=== PATIENT | male | born 1965 ===

== ENCOUNTER 2016-12-16 17:51 | Inpatient (IN) | payer OTHER ==
[2016-12-16 19:55] LABS: HEMATOCRIT 22.7 % (35.0-51.0); MEAN CELL VOLUME 76.9 fL (80.0-94.0); MEAN PLATELET VOLUME 8.1 fL (7.2-11.7); RED CELL DISTRIBUTION WIDTH 25.1 % (11.5-14.5)
[2016-12-16 20:01] LABS: MEAN CORPUSCULAR HEMOGLOBIN 24.1 pg (27.0-31.0); MEAN CORPUSCULAR HGB CONC 31.4 g/dL (33.0-37.0); PLATELET COUNT 244 K/uL (130-400); WHITE BLOOD COUNT 7.8 K/uL (4.8-10.8)
[2016-12-16 20:05] LABS: CHLORIDE 106 mmol/L (98-107); POTASSIUM 3.9 mmol/L (3.6-5.2); SODIUM 137 mmol/L (132-148)
--- NOTE | 2016-12-16 20:06 | C.PDOC ---
History Of Present Illness 51 year old patient presents to the ED complaining of right leg pain for an unspecified amount of time and right upper back pain. pt denies any history of heavy lifting. pt denies cp and sob. pt is a poor historian, reports hx of liver disease. Time Seen by Provider: 12/16/16 18:26 Chief Complaint (Nursing): Back Pain History Per: Patient History/Exam Limitations: no limitations Current Symptoms Are (Timing): Still Present Quality Of Discomfort: "Pain" Severity: Moderate Pain Scale Rating Of: 7 Recent travel outside of the [place]: No Past Medical History Reviewed: Historical Data, Nursing Documentation, Vital Signs Vital Signs: Last Vital Signs Temp 98.9 F 12/16/16 19:23 Pulse 119 H 12/16/16 20:33 Resp 14 12/16/16 20:33 BP 148/90 12/16/16 20:33 Pulse Ox 99 12/16/16 21:20 - Medical History Other PMH: liver disease Surgical History: No Surg Hx Family History: States: Unknown Family Hx - Social History Hx Tobacco Use: Yes Hx Alcohol Use: Yes Hx Substance Use: No - Immunization History Hx Tetanus Toxoid Vaccination: No Hx Influenza Vaccination: No Hx Pneumococcal Vaccination: No Review Of Systems Except As Marked, All Systems Reviewed And Found Negative. Constitutional: Negative for: Fever, Chills Cardiovascular: Negative for: Chest Pain Respiratory: Negative for: Cough, Shortness of Breath Gastrointestinal: Negative for: Nausea, Vomiting, Abdominal Pain Musculoskeletal: Positive for: Back Pain Neurological: Negative for: Weakness, Numbness Physical Exam - Physical Exam Appears: Non-toxic, No Acute Distress, Unkempt Skin: No Normal Color, Warm, Dry, Other (skin bronzed appearance on face. ) Head: Atraumatic, Normacephalic Eye(s): bilateral: PERRL, EOMI, Conjunctiva Pale Oral Mucosa: Moist Neck: Normal ROM, Supple Chest: Symmetrical, No Deformity, No Tenderness Cardiovascular: Rhythm Regular (tachycardic), No Murmur Respiratory: Normal Breath Sounds, No Rales, No Rhonchi, No Wheezing Gastrointestinal/Abdominal: Soft, No Tenderness Rectal: Rectal Tone, No Maroon Stool, Other (brown stool, no gross blood. ) Back: Normal Inspection, No CVA Tenderness, Other (tedner all along entire right side of back paravertebral area) Extremity: Normal ROM, Pedal Edema, Other (left lower ext +2 dp pulse, +2 pitting edema, no calf tenderness. RLE- +2 dp pulse, markedly more swollen than left from foot to knee with chronic skin changes, no erythema or warmth. +3 pitting edema) Neurological/Psych: Oriented x3, Normal Speech, Normal Cognition Gait: Steady ED Course And Treatment - Laboratory Results Result Diagrams: 12/16/16 19:50 12/16/16 19:50 O2 Sat by Pulse Oximetry: 99 (room air) Pulse Ox Interpretation: Normal Disposition Discussed With Dr.: Ashutosh Snyder Doctor Will See Patient In The: ED - Disposition Disposition: HOSPITALIZED Disposition Time: 21:32 Condition: SERIOUS - Clinical Impression Clinical Impression: Anemia, Liver disease Decision To Admit - Pt Status Changed To: Hospital Disposition Of: Inpatient - Admit Certification Admit to Inpatient:: After my assessment, the patient will require hospitalization for at least two midnights. This is because of the severity of symptoms shown, intensity of services needed, and/or the medical risk in this patient being treated as an outpatient. - InPatient: Physician Admission Certification:: for tx of anemia and liver disease - . Bed Request Type: Regular Admitting Physician: Ashutosh Snyder Patient Diagnosis: Anemia, Liver disease
[2016-12-16 20:07] LABS: BILIRUBIN,TOTAL 2.5 mg/dL (0.2-1.3); GFR AFRICAN-AMERICAN > 60
[2016-12-16 20:08] LABS: ALKALINE PHOSPHATASE 259 U/L (38-126); ALT/SGPT 29 U/L (21-72); AST/SGOT 77 U/L (17-59); BLOOD UREA NITROGEN 6 mg/dL (9-20); CALCIUM 7.3 mg/dl (8.6-10.4); CARBON DIOXIDE 23 mmol/L (22-30); GLUCOSE,RANDOM 133 mg/dL (75-110); TOTAL PROTEIN 7.4 g/dL (6.3-8.3)
[2016-12-16 20:11] LABS: ALB/GLOB RATIO 0.5 (1.0-2.1)
[2016-12-16 20:16] LABS: INR 1.9
[2016-12-16 20:32] LABS: EOSINOPHIL 3 % (0-4); NEUTROPHIL 50 % (50-75); REACTIVE LYMPHOCYTES 1 % (0-0); TOTAL CELLS COUNTED 100
[2016-12-16 20:33] LABS: GIANT PLATELETS PRESENT; LARGE PLATELETS PRESENT; SPHEROCYTES SLIGHT
[2016-12-16] MEDS ORDERED: Sodium Chloride 0.9% 1,000 ML IV ONE (20:45)
[2016-12-16 21:05] LABS: ALCOHOL SERUM 47 mg/dl (0-10)
[2016-12-16 22:59] LABS: RBC URINE 7 /hpf (0-3); URINE BILIRUBIN NEGATIVE (NEGATIVE); URINE BLOOD 1+ (NEGATIVE); URINE COLOR Yellow (YELLOW); URINE GLUCOSE (UA) NORMAL (Normal); URINE KETONE NEGATIVE (NEGATIVE); URINE LEUKOCYTE ESTERASE NEG Leu/uL (Negative); URINE PROTEIN NEGATIVE (NEGATIVE); WBC URINE 1 /hpf (0-5)
--- NOTE | 2016-12-16 23:10 | CP.PCM.HP ---
<Idania Candelaria - Last Filed: 12/17/16 02:12> History of Present Illness - History of Present Illness History of Present Illness: CC: "Right shoulder and leg pain" HPI: Patient is a 51 year old male with medical history of liver disease and alcohol abuse who presents to the emergency department for right shoulder pain and right lower extremity swelling and pain. Patient is a poor historian and difficult to understand due to hoarse voice/laryngitis. He states he lost his voice 4 days ago. Patient denies recent intake of alcohol; however, blood alcohol level performed in ED came back elevated (47). When questioned about alcohol use, patient states he quit drinking in three years ago. He reports he used to drink 2 pints of vodka for many years. Patient states he developed right shoulder pain 4 days ago. He denies any trauma to the area. Patient denies chest pain, palpitations, shortness of breath, and abdominal pain/ distention. He admits to multiple episodes of dark red emesis 4 days ago. Patient cannot not quantify amount or further describe vomitus. He states, "I was throwing up all night." He denies diarrhea, hematochezia, and melanic stool. Patient admits to feeling fatigue. He denies dizziness and lightheadedness. Patient also complains of right lower extremity swelling and pain, which has been present for a year. He reports he had surgery for an infection to the affected extremity one year ago. Patient notes he has difficulty with ambulation. He does not use any supportive devices for ambulation. Patient denies history of alcohol withdrawal and seizure activity, hallucinations, and tremors. PMD: none PMH: Liver disease, alcohol abuse Medications: none Allergies: NKDA, seasonal allergies Family History: denies Surgical History: Right lower extremity surgery Social: Denies tobacco and illicit drug use. Reports he has not had alcohol in 3 years. Admits to drinking 2 pints of vodka daily in the past. Admits to being homeless. Present on Admission - Present on Admission Any Indicators Present on Admission: No History of DVT/PE: No History of Uncontrolled Diabetes: No Urinary Catheter: No Decubitus Ulcer Present: No Review of Systems - Constitutional Constitutional: Fatigue. absent: Chills, Fever, Headache, Night Sweats, Weight Loss - EENT Eyes: absent: Blurred Vision, Change in Vision Nose/Mouth/Throat: Change in Voice, Hoarsness. absent: Odynophagia - Cardiovascular Cardiovascular: Leg Edema, Pedal Edema. absent: Chest Pain, Chest Pain at Rest , Chest Pain with Activity, Dyspnea, Pain Radiating to Arm/Neck/Jaw, Lightheadedness, Palpitations, Rapid Heart Rate - Respiratory Respiratory: absent: Cough, Hemoptysis, Wheezing, Chest Congestion, Pain with Coughing - Gastrointestinal Gastrointestinal: Coffee Ground Emesis, Nausea, Vomiting. absent: Abdominal Pain, Constipation, Diarrhea, Hematochezia, Melena - Genitourinary Genitourinary: absent: Change in Urinary Stream, Difficulty Urinating, Hematuria - Musculoskeletal Musculoskeletal: Back Pain Additional comments: right shoulder pain - Integumentary Integumentary: Pruritus, Rash Additional comments: pruritus rash on chest and back - Neurological Neurological: absent: Disequilibrium, Dizziness, Weakness - Psychiatric Psychiatric: absent: Anxiety, Depression Past Patient History - Infectious Disease Hx of Infectious Diseases: None - Past Social History Smoking Status: Never Smoked - PSYCHIATRIC Hx Substance Use: No - SURGICAL HISTORY Hx Surgeries: Yes Other/Comment: right arm and right knee surgery. - ANESTHESIA Hx Anesthesia: Yes Hx Anesthesia Reactions: No Hx Malignant Hyperthermia: No Meds Allergies/Adverse Reactions: Allergies Allergy/AdvReac Type Severity Reaction Status Date / Time No Known Allergies Allergy Unverified 12/16/16 19:29 Physical Exam - Constitutional Appears: No Acute Distress Additional comments: aaron/cyanotic face - Head Exam Additional comments: aaron/cyanotic appearing face - Eye Exam Eye Exam: EOMI, Normal appearance, PERRL. absent: Nystagmus, Scleral icterus - ENT Exam ENT Exam: Mucous Membranes Moist Additional comments: hoarse voice - Neck Exam Neck exam: Positive for: Full Rom, Normal Inspection - Respiratory Exam Respiratory Exam: Clear to Auscultation Bilateral, NORMAL BREATHING PATTERN. absent: Rales, Rhonchi, Wheezes - Cardiovascular Exam Cardiovascular Exam: Tachycardia, +S1, +S2. absent: Diastolic murmur, Systolic Murmur - GI/Abdominal Exam GI & Abdominal Exam: Distended, Hyperactive Bowel Sounds, Organomegaly Additional comments: hepatomegaly - Extremities Exam Extremities exam: Positive for: pedal edema, tenderness Additional comments: RLE: significant edema to right lower extremity and foot with lichenification and verrucous plaques to skin. Malodorous papillomatous lesions noted. Area of ulceration to lateral calf. 3+ pitting edema. Deformity to phalanges. Diminished pedal pulse. LLE: trace edema to left lower extremity. Pedal edema. Deformed phalanges. - Back Exam Back exam: NORMAL INSPECTION - Neurological Exam Neurological exam: Alert, CN II-XII Intact, Oriented x3 - Psychiatric Exam Psychiatric exam: Normal Affect, Normal Mood - Skin Additional comments: aaron/cyanotic appearance to facial skin multiple pruritic red papules and pustules affecting chest and back with areas of excoriation and crusting. Results - Vital Signs Recent Vital Signs: Last Vital Signs Temp 98.9 F 12/16/16 19:23 Pulse 119 H 12/16/16 20:33 Resp 14 12/16/16 20:33 BP 148/90 12/16/16 20:33 Pulse Ox 99 12/16/16 21:37 - Labs Result Diagrams: 12/16/16 19:50 12/16/16 19:50 Labs: Laboratory Results - last 24 hr 12/16/16 12/16/16 21:34 22:09 Stool Occult Blood Negative Urine Opiates Screen Negative Urine Methadone Screen Negative Ur Barbiturates Screen Negative Ur Phencyclidine Scrn Negative Ur Amphetamines Screen Negative U Benzodiazepines Scrn Negative U Oth Cocaine Metabols Negative U Cannabinoids Screen Negative Assessment & Plan - Assessment and Plan (Free Text) Assessment: Right Lower Extremity 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 Degroot, consulted. help appreciated. F/U AM CBC with diff Tachycardia EKG: A-fib with RVR Patient denies prior history of a-fib Given Cardizem 5 mg IVP stat Start Cardizem 30 mg po QID F/u lower extremity duplex scan F/u SHERLEY Panel and Serial EKG Trop I <0.[address] angiogram pending results of lower extremity duplex scan Alcohol Abuse Disorder Alcohol, Quantitative 47 Denying current alcohol abuse AST 77/ALT 29 Alk Phos 259 Hyperbilirubinemia - total bilirubin 2.5 Lipase 2.6 Tachycardic rate of 119 Ativan 2 mg po q4h prn for withdrawal symptoms Zofran 4 mg IVP q6h prn for nausea/vomiting Start folic acid, multivitamins, and thiamine daily Counseled on alcohol cessation seizure and aspiration precautions Transaminitis Likely secondary to alcohol abuse AST 77, ALT 29 f/u Hepatitis Panel f/u Abdominal Ultrasound Monitor Coagulopathy Likely secondary to alcohol abuse PT 21.5, PTT 38, INR 1.9 Chemical VTE contraindicated Monitor Papular Dermatosis Gabe's disease (Transient Acantholytic Dermatosis) vs. HIV dermatosis vs. Folliculitis f/u HIV Antibody Triamcinolone 0.1% topical cream BID for 2 weeks to chest and back for pruritus Pseudo-Hypocalcemia calcium 7.3 albumin 2.6 corrected calcium 11.34 Prophylaxis Protonix 20 mg po daily Chemical VTE contraindicated due to coagulopathy Heart Healthy Diet - Date & Time Date: 12/17/16 Time: 02:15 <Ashutosh Snyder - Last Filed: 12/17/16 06:26> Results - Vital Signs Recent Vital Signs: Last Vital Signs Temp 98.6 F 12/17/16 00:40 Pulse 117 H 12/17/16 00:40 Resp 20 12/17/16 00:40 BP 150/87 12/17/16 00:40 Pulse Ox 96 12/17/16 00:40 - Labs Result Diagrams: 12/16/16 19:50 12/16/16 19:50 Labs: Laboratory Results - last 24 hr 12/16/16 12/16/16 12/16/16 21:34 22:09 22:40 Urine Color Yellow Urine Clarity Clear Urine pH 6.0 Ur Specific [place] 1.016 Urine Protein Negative Urine Glucose (UA) Normal Urine Ketones Negative Urine Blood 1+ H Urine Nitrate Negative Urine Bilirubin Negative Urine Urobilinogen 4.0 Ur Leukocyte Esterase Neg Urine WBC (Auto) 1 Urine RBC (Auto) 7 H Ur Squamous Epith Cells < 1 Stool Occult Blood Negative Urine Opiates Screen Negative Urine Methadone Screen Negative Ur Barbiturates Screen Negative Ur Phencyclidine Scrn Negative Ur Amphetamines Screen Negative U Benzodiazepines Scrn Negative U Oth Cocaine Metabols Negative U Cannabinoids Screen Negative Assessment & Plan - Date & Time Date: 12/17/16 (I have seen and examined the patient. I agree with the findings and plan of care as documented by Dr. Candelaria. Patient with Alcohol abuse. Ativan. Abdominal ultrasound. Anemia. Patient's history suspicious for GI bleed. GI consult. For leg edema and tachycardia, check doppler of lower extremity. May check CT angio if patient complains of SOB. Monitor for acute changes.) Time: 06:23 Attending/Attestation - Attestation I have personally seen and examined this patient.: Yes I have fully participated in the care of the patient.: Yes I have reviewed all pertinent clinical information: Yes
[2016-12-17 06:21] LABS: MEAN CORPUSCULAR HEMOGLOBIN 24.6 pg (27.0-31.0); MEAN PLATELET VOLUME 8.2 fL (7.2-11.7); WHITE BLOOD COUNT 9.3 K/uL (4.8-10.8)
[2016-12-17 06:28] LABS: CHLORIDE 102 mmol/L (98-107); SODIUM 133 mmol/L (132-148)
[2016-12-17 06:29] LABS: POTASSIUM 3.9 mmol/L (3.6-5.2)
[2016-12-17 06:30] LABS: CHOLESTEROL 162 mg/dL (0-199)
[2016-12-17 06:31] LABS: ALB/GLOB RATIO 0.5 (1.0-2.1); ALKALINE PHOSPHATASE 241 U/L (38-126); AST/SGOT 71 U/L (17-59); BILIRUBIN,TOTAL 2.5 mg/dL (0.2-1.3); BLOOD UREA NITROGEN 6 mg/dL (9-20); CARBON DIOXIDE 26 mmol/L (22-30); GFR AFRICAN-AMERICAN > 60; GLUCOSE,RANDOM 117 mg/dL (75-110); TOTAL PROTEIN 7.2 g/dL (6.3-8.3)
[2016-12-17 06:32] LABS: ALT/SGPT 29 U/L (21-72); CALCIUM 6.9 mg/dl (8.6-10.4); IRON 35 ug/dL (49-181)
[2016-12-17 06:33] LABS: HEMATOCRIT 22.9 % (35.0-51.0); MEAN CELL VOLUME 76.8 fL (80.0-94.0); PLATELET COUNT 228 K/uL (130-400); RED CELL DISTRIBUTION WIDTH 24.3 % (11.5-14.5)
[2016-12-17 06:45] LABS: INR 1.9
[2016-12-17 06:48] LABS: T4 2.79 ug/dL (5.5-11.0)
[2016-12-17 07:02] LABS: THYROID STIMULATING HORMONE 2.04 mIU/L (0.46-4.68)
--- NOTE | 2016-12-17 08:13 | CP.PCM.PN ---
<Christiane Vargas I - Last Filed: 12/17/16 08:10> Subjective - Date & Time of Evaluation Date of Evaluation: 12/17/16 Time of Evaluation: 07:50 - Subjective Subjective: PGY3 on the Medicine Service Patient seen and examined at bedside. Sleepy but arousable to verbal stimuli. Complains of chronic back pain and right leg pain. Denies chest pain, SOB, headache, dizziness, tremor, nausea, vomiting, diarrhea. Objective - Vital Signs/Intake and Output Vital Signs (last 24 hours): Temp Pulse Resp BP Pulse Ox 98.3 F 120 H 20 151/93 H 96 12/17/16 07:38 12/17/16 07:38 12/17/16 07:38 12/17/16 07:38 12/17/16 07:38 Intake and Output: 12/17/16 12/17/16 06:59 18:59 Output Total 400 Balance -400 - Medications Medications: Current Medications Diltiazem HCl (Cardizem) 30 mg PO QID [facility] Folic Acid (Folic Acid) 1 mg PO DAILY [facility] Influenza Virus Vaccine (Afluria) 45 mcg IM .ONCE ONE Stop: 12/19/16 14:01 Lorazepam (Ativan) 2 mg PO Q4H PRN PRN Reason: withdrawal Multivitamins (Hexavitamin) 1 tab PO DAILY [facility] Ondansetron HCl (Zofran Inj) 4 mg IVP Q6H PRN PRN Reason: Nausea/Vomiting Pantoprazole Sodium (Protonix Ec Tab) 20 mg PO DAILY [facility] Pneumococcal Polyvalent Vaccine (Pneumovax 23 Vaccine) 0.5 ml IM .ONCE ONE Stop: 12/19/16 14:01 Thiamine HCl (Vitamin B1 Tab) 100 mg PO DAILY [facility] Triamcinolone Acetonide (Kenalog 0.1% Cream) 0 appl TOP BID [facility] - Labs Labs: 12/17/16 06:00 12/17/16 06:00 PT 21.7 SECONDS (9.7-12.2) H 12/17/16 06:00 INR 1.9 12/17/16 06:00 APTT 38 SECONDS (21-34) H 12/17/16 06:00 - Constitutional Appears: Non-toxic, No Acute Distress, Chronically Ill - Head Exam Head Exam: ATRAUMATIC, NORMAL INSPECTION, NORMOCEPHALIC - Eye Exam Eye Exam: Scleral icterus - ENT Exam ENT Exam: Mucous Membranes Moist - Respiratory Exam Respiratory Exam: Clear to Ausculation Bilateral, NORMAL BREATHING PATTERN - Cardiovascular Exam Cardiovascular Exam: Irregular Rhythm. absent: Murmur - GI/Abdominal Exam GI & Abdominal Exam: Distended, Soft, Normal Bowel Sounds. absent: Tenderness - Extremities Exam Additional comments: right leg 1+ edema with some nonhealing appearing ulcers - Back Exam Back Exam: NORMAL INSPECTION. 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 Degroot, consulted. help appreciated. Monitor CBC and tranfuse for Hgb <7 Tachycardia EKG: A-fib with RVR Patient denies prior history of a-fib Cardizem 30 mg po QID F/u lower extremity duplex scan SHERLEY panel negative Consider CT angiogram pending results of lower extremity duplex scan Alcohol Abuse Disorder Alcohol, Quantitative 47 Denies current alcohol abuse AST and ALT have a 3:1 ratio, consistent with EtOH abuse Alk Phos 259 Hyperbilirubinemia - total bilirubin 2.5 Lipase 2.6 Ativan 2 mg po q4h prn for withdrawal symptoms Zofran 4 mg IVP q6h prn for nausea/vomiting Continue folic acid, multivitamins, and thiamine daily Counseled on alcohol cessation seizure and aspiration precautions Transaminitis AST and ALT have a 3:1 ratio, consistent with EtOH abuse Hepatitis Panel pending f/u Abdominal Ultrasound Monitor Coagulopathy Likely secondary to alcohol abuse PT 21.5, PTT 38, INR 1.9 Chemical VTE contraindicated Monitor Papular Dermatosis [place]'s disease (Transient Acantholytic Dermatosis) vs. HIV dermatosis vs. Folliculitis f/u HIV Antibody Triamcinolone 0.1% topical cream BID for 2 weeks to chest and back for pruritus Pseudo-Hypocalcemia calcium 7.3 albumin 2.6 corrected calcium 11.34 Prophylaxis Protonix 20 mg po daily Chemical VTE contraindicated due to coagulopathy Heart Healthy Diet <Anish Jefferson - Last Filed: 12/17/16 12:51> Objective - Vital Signs/Intake and Output Vital Signs (last 24 hours): Temp Pulse Resp BP Pulse Ox 98.3 F 120 H 20 151/93 H 96 12/17/16 07:38 12/17/16 07:38 12/17/16 07:38 12/17/16 07:38 12/17/16 07:38 Intake and Output: 12/17/16 12/17/16 06:59 18:59 Output Total 400 Balance -400 - Medications Medications: Current Medications Diltiazem HCl (Cardizem) 30 mg PO QID [facility] Last Admin: 12/17/16 09:47 Dose: 30 mg Folic Acid (Folic Acid) 1 mg PO DAILY [facility] Last Admin: 12/17/16 09:47 Dose: 1 mg Octreotide Acetate 1,250 mcg/ (Dextrose) 250 mls @ 5 mls/hr IV .Q24H [facility] PRN Reason: 25 MCG/HR Pantoprazole Sodium 80 mg/ (Sodium Chloride) 100 mls @ 10 mls/hr IVP .Q10H [facility] PRN Reason: 8 MG/HR Influenza Virus Vaccine (Afluria) 45 mcg IM .ONCE ONE Stop: 12/19/16 14:01 Lorazepam (Ativan) 2 mg PO Q4H PRN PRN Reason: withdrawal Multivitamins (Hexavitamin) 1 tab PO DAILY [facility] Last Admin: 12/17/16 09:47 Dose: 1 tab Ondansetron HCl (Zofran Inj) 4 mg IVP Q6H PRN PRN Reason: Nausea/Vomiting Pneumococcal Polyvalent Vaccine (Pneumovax 23 Vaccine) 0.5 ml IM .ONCE ONE Stop: 12/19/16 14:01 Thiamine HCl (Vitamin B1 Tab) 100 mg PO DAILY [facility] Last Admin: 12/17/16 09:47 Dose: 100 mg Triamcinolone Acetonide (Kenalog 0.1% Cream) 0 appl TOP BID [facility] Last Admin: 12/17/16 09:50 Dose: 1 appl - Labs Labs: 12/17/16 06:00 12/17/16 06:00 PT 21.7 SECONDS (9.7-12.2) H 12/17/16 06:00 INR 1.9 12/17/16 06:00 APTT 38 SECONDS (21-34) H 12/17/16 06:00 Attending/Attestation - Attestation I have personally seen and examined this patient.: Yes I have fully participated in the care of the patient.: Yes I have reviewed all pertinent clinical information, including history, physical exam and plan: Yes Notes (Text): 12/17/16 12:43 Patient seen and examined at bedside today Patient denies any active nausea or vomiting Complains of for right lower extremity swelling and also right mid back pain. Patient is anemic and GI evaluation seen in appreciated. Patient is scheduled for EGD tomorrow. Patient has atrial fibrillation but is rate controlled at this time. His heart rate is in the 70s and 80s. We will continue Cardizem. Patient will be a candidate for antiplatelet therapy. His CHADS 2 score is 0 We will hold any antiplatelet therapy at this time because patient has an EGD scheduled for morning and we have rule out GI bleed prior to starting him on antiplatelet therapy. Discussed the plan of care with the resident.
--- NOTE | 2016-12-17 09:43 | US ---
HISTORY: distended, alcohol abuse COMPARISON: None available. TECHNIQUE: Sonographic evaluation of the abdomen. FINDINGS: Examination limited by excessive bowel gas. LIVER: Measures 15.6 cm in sagittal dimension. Nodular hepatic contour. No focal hepatic mass identified. The main portal vein appears patent with normal directional flow. Trace perihepatic ascites. No intrahepatic bile duct dilatation. GALLBLADDER: No gallstones. Gallbladder wall appears thickened measuring approximately 5 mm with trace pericholecystic edema. Negative sonographic West's sign as assessed by the service station operator. COMMON BILE DUCT: Measures 5 mm. No stones. No dilatation. PANCREAS: Not well visualized. RIGHT KIDNEY: Measures 1.9 x 2.3 x 2.1cm. No obstructing calculus or hydronephrosis identified. LEFT KIDNEY: Measures 11.9 x 6.5 x 5.6cm. No obstructing calculus or hydronephrosis identified. 1.9 x 2.3 x 2.1 cm cyst. SPLEEN: Measures approximately 8.5 cm No focal splenic mass or calcification evident. AORTA: Limited views appear unremarkable. IVC: Limited views appear unremarkable. OTHER FINDINGS: None. IMPRESSION: Examination limited by bowel gas. Gallbladder wall appears thickened measuring approximately 5 mm with trace pericholecystic edema. No gallstones identified. Negative sonographic West's sign as assessed by the service station operator. 1.9 x 2.3 x 2.1 cm left renal cyst. Trace perihepatic ascites. Nodular hepatic contour. Correlate clinically for possibility of cirrhosis.
[2016-12-17] MEDS: Multiple Vitamins Tab PO SCH (09:47)
[2016-12-17] MEDS ORDERED: Pantoprazole 20 mg EC Tab PO SCH (10:00)
[2016-12-17 10:20] LABS: EOS # 0.4 K/uL (0.0-0.7); LYMPH # 1.8 K/uL (1.0-4.3)
[2016-12-17 10:23] LABS: EOSINOPHIL 4 % (0-4); NEUTROPHIL 55 % (50-75); TOTAL CELLS COUNTED 100
[2016-12-17 10:25] LABS: LARGE PLATELETS PRESENT
--- NOTE | 2016-12-17 12:25 | CP.PCM.CON ---
History of Present Illness - History of Present Illness History of Present Illness: This is a 51 year old man with a history of alcohol abuse who was admitted 2016 for pain in the right shoulder and swelling of the right leg. Patient admits to drinking two pints of vodka daily for many years. He claims not to have consumed alcohol recently, but the alcohol level on admission was 47. He states that he had several bouts of vomiting dark red blood approximately four days prior to admission. He has felt weak. He denies having bright red blood per rectum, melena and diarrhea. He denies having seizures or DTs. Blood work showed anemia, HGB 7.3, coagulopathy, PT 21.7, and elevated liver enzymes, AST 71, ALT 29, ALK 241,000, TBILI 2.5. sonogram showed nodular hepatic contour, trace perihepatic ascites and thickening of the GB wall, without sonographic West's sign. Review of Systems - Review of Systems Systems not reviewed;Unavailable: Uncooperative - Constitutional Constitutional: absent: Chills, Fever - EENT Eyes: absent: Blurred Vision Nose/Mouth/Throat: Hoarsness - Cardiovascular Cardiovascular: Leg Edema. absent: Chest Pain, Dyspnea, Palpitations - Respiratory Respiratory: absent: Cough - Gastrointestinal Gastrointestinal: Hematemesis, Nausea, Vomiting. absent: Abdominal Pain, Constipation, Diarrhea, Hematochezia, Melena - Genitourinary Genitourinary: absent: Difficulty Urinating - Neurological Neurological: absent: Syncope Past Patient History - Infectious Disease Hx of Infectious Diseases: None - Past Medical History & Family History Past Medical History?: Yes - Past Social History Smoking Status: Never Smoked - MUSCULOSKELETAL/RHEUMATOLOGICAL Hx Falls: Yes (long time ago) - PSYCHIATRIC Hx Substance Use: No - SURGICAL HISTORY Hx Surgeries: Yes Other/Comment: right arm and right knee surgery. - ANESTHESIA Hx Anesthesia: Yes Hx Anesthesia Reactions: No Hx Malignant Hyperthermia: No Meds Allergies/Adverse Reactions: Allergies Allergy/AdvReac Type Severity Reaction Status Date / Time No Known Allergies Allergy Unverified 12/16/16 19:29 - Medications Medications: Current Medications Diltiazem HCl (Cardizem) 30 mg PO QID [facility] Last Admin: 12/17/16 09:47 Dose: 30 mg Folic Acid (Folic Acid) 1 mg PO DAILY [facility] Last Admin: 12/17/16 09:47 Dose: 1 mg Influenza Virus Vaccine (Afluria) 45 mcg IM .ONCE ONE Stop: 12/19/16 14:01 Lorazepam (Ativan) 2 mg PO Q4H PRN PRN Reason: withdrawal Multivitamins (Hexavitamin) 1 tab PO DAILY [facility] Last Admin: 12/17/16 09:47 Dose: 1 tab Ondansetron HCl (Zofran Inj) 4 mg IVP Q6H PRN PRN Reason: Nausea/Vomiting Pantoprazole Sodium (Protonix Ec Tab) 20 mg PO DAILY [facility] Last Admin: 12/17/16 09:47 Dose: 20 mg Pneumococcal Polyvalent Vaccine (Pneumovax 23 Vaccine) 0.5 ml IM .ONCE ONE Stop: 12/19/16 14:01 Thiamine HCl (Vitamin B1 Tab) 100 mg PO DAILY [facility] Last Admin: 12/17/16 09:47 Dose: 100 mg Triamcinolone Acetonide (Kenalog 0.1% Cream) 0 appl TOP BID [facility] Last Admin: 12/17/16 09:50 Dose: 1 appl Physical Exam - Constitutional Appears: No Acute Distress - Head Exam Head Exam: ATRAUMATIC, NORMOCEPHALIC - Eye Exam Eye Exam: EOMI, PERRL - Neck Exam Neck exam: Negative for: Lymphadenopathy, Thyromegaly - Respiratory Exam Respiratory Exam: NORMAL BREATHING PATTERN. absent: Rales, Rhonchi, Wheezes - Cardiovascular Exam Cardiovascular Exam: REGULAR RHYTHM, +S1, +S2. absent: Gallop, Rubs, Systolic Murmur - GI/Abdominal Exam GI & Abdominal Exam: Normal Bowel Sounds, Soft. absent: Mass, Organomegaly, Tenderness - Rectal Exam Rectal Exam: Deferred - Extremities Exam Extremities exam: Negative for: calf tenderness Results - Vital Signs Recent Vital Signs: Last Vital Signs Temp 98.3 F 12/17/16 07:38 Pulse 120 H 12/17/16 07:38 Resp 20 12/17/16 07:38 BP 151/93 H 12/17/16 07:38 Pulse Ox 96 12/17/16 07:38 - Labs Result Diagrams: 12/17/16 06:00 12/17/16 06:00 Labs: Laboratory Results - last 24 hr 12/16/16 12/16/16 12/16/16 21:34 22:09 22:40 WBC RBC Hgb Hct MCV MCH MCHC RDW Plt Count MPV Neut % (Auto) Lymph % (Auto) [place] % (Auto) Eos % (Auto) Baso % (Auto) Neut # Lymph # [place] # Eos # Baso # Neutrophils % (Manual) Lymphocytes % (Manual) Monocytes % (Manual) Eosinophils % (Manual) Platelet Estimate Large Platelets Hypochromasia (manual) Poikilocytosis (manual Anisocytosis (manual) Target Cells Retic Count PT INR APTT Sodium Potassium Chloride Carbon Dioxide Anion Gap BUN Creatinine Est GFR ( Amer) Est GFR (Non-Af Amer) Random Glucose Calcium Iron TIBC % Saturation Total Bilirubin AST ALT Alkaline Phosphatase Total Creatine Kinase CK-MB (Mass) Troponin I, Quant Total Protein Albumin Globulin Albumin/Globulin Ratio Triglycerides Cholesterol LDL Cholesterol Direct HDL Cholesterol Thyroxine (T4) TSH 3rd Generation Urine Color Yellow Urine Clarity Clear Urine pH 6.0 Ur Specific [place] 1.016 Urine Protein Negative Urine Glucose (UA) Normal Urine Ketones Negative Urine Blood 1+ H Urine Nitrate Negative Urine Bilirubin Negative Urine Urobilinogen 4.0 Ur Leukocyte Esterase Neg Urine WBC (Auto) 1 Urine RBC (Auto) 7 H Ur Squamous Epith Cells < 1 Stool Occult Blood Negative Urine Opiates Screen Negative Urine Methadone Screen Negative Ur Barbiturates Screen Negative Ur Phencyclidine Scrn Negative Ur Amphetamines Screen Negative U Benzodiazepines Scrn Negative U Oth Cocaine Metabols Negative U Cannabinoids Screen Negative 12/17/16 12/17/16 06:00 06:10 WBC 9.3 RBC 2.98 L Hgb 7.3 L Hct 22.9 L MCV 76.8 L MCH 24.6 L MCHC 32.0 L RDW 24.3 H Plt Count 228 MPV 8.2 Neut % (Auto) 55.0 Lymph % (Auto) 19.0 L [place] % (Auto) 22.0 H Eos % (Auto) 4.0 Baso % (Auto) 0.0 Neut # 5.1 Lymph # 1.8 [place] # 2.0 H Eos # 0.4 Baso # 0.0 Neutrophils % (Manual) 55 Lymphocytes % (Manual) 19 L Monocytes % (Manual) 22 H Eosinophils % (Manual) 4 Platelet Estimate Normal Large Platelets Present Hypochromasia (manual) Slight Poikilocytosis (manual Slight Anisocytosis (manual) Moderate Target Cells Moderate Retic Count 2.9 H PT 21.7 H INR 1.9 APTT 38 H Sodium 133 Potassium 3.9 Chloride 102 Carbon Dioxide 26 Anion Gap 9 L BUN 6 L Creatinine 0.6 L Est GFR ( Amer) > 60 Est GFR (Non-Af Amer) > 60 Random Glucose 117 H Calcium 6.9 L Iron 35 L TIBC 301 % Saturation 12 L Total Bilirubin 2.5 H AST 71 H ALT 29 Alkaline Phosphatase 241 H Total Creatine Kinase 380 H CK-MB (Mass) 2.90 Troponin I, Quant < 0.0120 Total Protein 7.2 Albumin 2.5 L Globulin 4.7 H Albumin/Globulin Ratio 0.5 L Triglycerides 122 Cholesterol 162 LDL Cholesterol Direct 104 HDL Cholesterol 22 L Thyroxine (T4) 2.79 L TSH 3rd Generation 2.04 Urine Color Urine Clarity Urine pH Ur Specific [place] Urine Protein Urine Glucose (UA) Urine Ketones Urine Blood Urine Nitrate Urine Bilirubin Urine Urobilinogen Ur Leukocyte Esterase Urine WBC (Auto) Urine RBC (Auto) Ur Squamous Epith Cells Stool Occult Blood Urine Opiates Screen Urine Methadone Screen Ur Barbiturates Screen Ur Phencyclidine Scrn Ur Amphetamines Screen U Benzodiazepines Scrn U Oth Cocaine Metabols U Cannabinoids Screen Assessment & Plan (1) Hematemesis Assessment and Plan: Patient has a history of significant alcohol consumption, with evidence of cirrhosis on sonogram, anemia and coagulopathy. the liver enzymes are suggestive of mild alcoholic hepatitis. Will administer vitamin K and plan for EGD in AM. Status: Acute
[2016-12-17] MEDS ORDERED: Pantoprazole 80 MG in Sodium Chloride 0.9% 100 ML IVP SCH (12:45)
--- NOTE | 2016-12-17 13:53 | RAD ---
PROCEDURE: Radiographs of the chest and bilateral ribs HISTORY: rib pain COMPARISON: None available. FINDINGS: RIGHT RIBS: Right 8th rib fracture deformity, suspected chronic. Correlate with physical exam to assess for point tenderness. LEFT RIBS: No appreciable displaced rib fracture. LUNGS: No focal consolidation. Please note that chest x-ray has limited sensitivity for the detection of pulmonary masses. PLEURA: No significant pleural effusion. No definite pneumothorax. CARDIOVASCULAR: Mild cardiomegaly. OTHER FINDINGS: Right mid clavicle deformity ; correlate for prior fracture or expansile lesion. IMPRESSION: Right 8th rib fracture deformity, suspected chronic. Correlate with physical exam to assess for point tenderness. Right mid clavicle deformity ; correlate for prior fracture or expansile lesion. Mild cardiomegaly.
[2016-12-17] MEDS: WATER IV SCH (14:11)
[2016-12-17] MEDS: DEXTROSE 5% IV SCH (14:11)
[2016-12-17] MEDS: OCTREOTIDE IV SCH (14:11)
[2016-12-17] MEDS: Pantoprazole 80 MG in Sodium Chloride 0.9% 100 ML IV SCH ×2 (14:15→23:35)
[2016-12-18] MEDS: Pantoprazole 80 MG in Sodium Chloride 0.9% 100 ML IV SCH (03:57)
[2016-12-18 06:26] LABS: BASO # 0.1 K/uL (0.0-0.2); HEMATOCRIT 23.3 % (35.0-51.0); MONO # 0.9 K/uL (0.0-0.8); MONO % 8.8 % (0.0-10.0); WHITE BLOOD COUNT 10.1 K/uL (4.8-10.8)
[2016-12-18 06:37] LABS: CHLORIDE 98 mmol/L (98-107); POTASSIUM 4.2 mmol/L (3.6-5.2); SODIUM 130 mmol/L (132-148)
[2016-12-18 06:39] LABS: AST/SGOT 73 U/L (17-59); BILIRUBIN,TOTAL 3.3 mg/dL (0.2-1.3); CARBON DIOXIDE 26 mmol/L (22-30); GFR AFRICAN-AMERICAN > 60
[2016-12-18 06:40] LABS: ALB/GLOB RATIO 0.5 (1.0-2.1); ALKALINE PHOSPHATASE 172 U/L (38-126); ALT/SGPT 30 U/L (21-72); BLOOD UREA NITROGEN 8 mg/dL (9-20); CALCIUM 7.3 mg/dl (8.6-10.4); GLUCOSE,RANDOM 119 mg/dL (75-110); MAGNESIUM 1.3 mg/dL (1.6-2.3); PHOSPHOROUS 3.8 mg/dL (2.5-4.5); TOTAL PROTEIN 7.1 g/dL (6.3-8.3)
[2016-12-18 06:58] LABS: BASO % 1.1 % (0.0-2.0); EOS # 0.3 K/uL (0.0-0.7); LYMPH # 4.5 K/uL (1.0-4.3); LYMPH % 44.8 % (20.0-40.0); MEAN CELL VOLUME 76.7 fL (80.0-94.0); MEAN CORPUSCULAR HEMOGLOBIN 24.5 pg (27.0-31.0); MEAN PLATELET VOLUME 8.5 fL (7.2-11.7); NRBC % 0.2 % (0.0-2.0); RED CELL DISTRIBUTION WIDTH 24.8 % (11.5-14.5)
[2016-12-18] MEDS ORDERED: Etomidate 20 mg/10ml Inj IV ONE (09:12)
[2016-12-18] MEDS ORDERED: Midazolam 2 MG/2 ML VIAL ONE (09:12)
[2016-12-18] MEDS ORDERED: Phytonadione 10 mg/ml Inj (Adult) SC STA ×2 (09:49→11:52)
--- NOTE | 2016-12-18 09:58 | PCM.SURG1 ---
Surgeon's Initial Post Op Note - Surgeon's Notes Surgeon: Fermín Todd MD Materials Mgmt Tech: none Type of Anesthesia: MAC Pre-Operative Diagnosis: Hematemesis Operative Findings: Small esophageal varices; retained food in stomach; multiple small polyps in antrum Post-Operative Diagnosis: Esophageal varices; gastroparesis; gastric polyps Operation Performed: EGD Specimen/Specimens Removed: none Estimated Blood Loss: EBL {In ML}: 0 Date of Surgery/Procedure: 12/18/16 Time of Surgery/Procedure: 09:57
[2016-12-18] MEDS: Pantoprazole 40 mg EC Tab PO SCH (11:25)
[2016-12-18] MEDS: Multiple Vitamins Tab PO SCH (12:33)
[2016-12-18] MEDS: DEXTROSE 5% IV SCH (12:35)
[2016-12-18] MEDS: WATER IV SCH (12:35)
[2016-12-18] MEDS: OCTREOTIDE IV SCH (12:35)
--- NOTE | 2016-12-18 13:53 | CP.PCM.CON ---
<Albert Darnell - Last Filed: 12/18/16 16:23> History of Present Illness - History of Present Illness History of Present Illness: Cardiology Consultation Note Dr. You CC: Atrial Fibrilation HPI: This is a 51 year old male with a PMH notable for liver disease and alcohol abuse presenting for cardiac evaluation of atrial fibrilation. He presented to the hospital for right UE and LE pain with swelling in the LE. On admission, patient was noted to be in Afib with RVR. Patient takes no home medications and does not follow with an outpatient primary care physician. The patient denies limitation on activity and is able to preform ADLs and IADLs independently and without difficulty. The patient denies history of cardiopulmonary events and chest pain. The patient reports hematemesis 4 days prior to admission. The patient is unable to quantify the amount of vomitus. The patient has a known history of alcoholism, but is inconsistent on the details of his use. Presently, the patient is asymptomatic and denies cardiopulmonary complaints, dizziness, and lightheadedness. EGD this morning revealed esophageal varices and gastric polyps. PMD: none PMH: Liver disease, alcohol abuse Medications: none Allergies: NKDA, seasonal allergies Family History: denies Surgical History: Right lower extremity surgery Social: Denies tobacco and illicit drug use. Reports he has not had alcohol in 3 years. Admits to drinking 2 pints of vodka daily in the past. Admits to being homeless. Review of Systems - Constitutional Constitutional: absent: Chills, Fever - EENT Eyes: absent: Blurred Vision, Change in Vision Ears: absent: Decreased Hearing, Tinnitus Nose/Mouth/Throat: Change in Voice, Hoarsness. absent: Nose Pain, Facial Pain, Neck Pain - Cardiovascular Cardiovascular: Edema, Leg Edema, Pedal Edema. absent: Chest Pain, Dyspnea on Exertion, Lightheadedness, Palpitations, Paroxysmal Nocturnal Dyspnea, Rapid Heart Rate, Syncope - Respiratory Respiratory: absent: Cough, Hemoptysis, Dyspnea on Exertion - Gastrointestinal Gastrointestinal: Abdominal Pain, Coffee Ground Emesis, Hematemesis, Nausea, Vomiting. absent: Constipation, Hematochezia, Temesmus - Genitourinary Genitourinary: absent: Change in Urinary Stream, Difficulty Urinating - Musculoskeletal Musculoskeletal: Arthralgias (right shoulder), Back Pain (chronic). absent: Numbness, Stiffness, Tingling - Integumentary Integumentary: absent: Lesions, Rash, Wounds - Neurological Neurological: absent: Syncope, Tingling, Tremor, Vertigo, Weakness - Endocrine Endocrine: absent: Cold Intolorance, Heat Intolorance, Polydipsia, Polyphagia Past Patient History - Infectious Disease Hx of Infectious Diseases: None - Past Medical History & Family History Past Medical History?: Yes - Past Social History Smoking Status: Never Smoked - MUSCULOSKELETAL/RHEUMATOLOGICAL Hx Falls: Yes (long time ago) - PSYCHIATRIC Hx Substance Use: No - SURGICAL HISTORY Hx Surgeries: Yes Other/Comment: right arm and right knee surgery. - ANESTHESIA Hx Anesthesia: Yes Hx Anesthesia Reactions: No Hx Malignant Hyperthermia: No Meds Allergies/Adverse Reactions: Allergies Allergy/AdvReac Type Severity Reaction Status Date / Time No Known Allergies Allergy Unverified 12/16/16 19:29 - Medications Medications: Current Medications Diltiazem HCl (Cardizem) 30 mg PO QID [facility] Last Admin: 12/18/16 11:25 Dose: 30 mg Folic Acid (Folic Acid) 1 mg PO DAILY [facility] Last Admin: 12/18/16 11:25 Dose: 1 mg Octreotide Acetate 1,250 mcg/ (Dextrose) 250 mls @ 5 mls/hr IV .Q24H NADER PRN Reason: 25 MCG/HR Last Admin: 12/18/16 12:35 Dose: 5 mls/hr Influenza Virus Vaccine (Afluria) 45 mcg IM .ONCE ONE Stop: 12/19/16 14:01 Insulin Aspart (Novolog) 0 unit SC ACHS [facility] PRN Reason: Protocol Lorazepam (Ativan) 2 mg PO Q4H PRN PRN Reason: withdrawal Multivitamins (Hexavitamin) 1 tab PO DAILY [facility] Last Admin: 12/18/16 12:33 Dose: 1 tab Nadolol (Corgard) 20 mg PO DAILY [facility] Last Admin: 12/18/16 11:25 Dose: 20 mg Ondansetron HCl (Zofran Inj) 4 mg IVP Q6H PRN PRN Reason: Nausea/Vomiting Pantoprazole Sodium (Protonix Ec Tab) 40 mg PO DAILY [facility] Last Admin: 12/18/16 11:25 Dose: 40 mg Pneumococcal Polyvalent Vaccine (Pneumovax 23 Vaccine) 0.5 ml IM .ONCE ONE Stop: 12/19/16 14:01 Thiamine HCl (Vitamin B1 Tab) 100 mg PO DAILY [facility] Last Admin: 12/18/16 11:25 Dose: 100 mg Triamcinolone Acetonide (Kenalog 0.1% Cream) 0 appl TOP BID [facility] Last Admin: 12/18/16 12:32 Dose: 1 appl Physical Exam - Constitutional Appears: No Acute Distress - Head Exam Head Exam: ATRAUMATIC, NORMAL INSPECTION - Eye Exam Eye Exam: EOMI - ENT Exam ENT Exam: Mucous Membranes Moist - Neck Exam Neck exam: Positive for: Full Rom. Negative for: Lymphadenopathy, Tenderness - Respiratory Exam Respiratory Exam: Clear to Auscultation Bilateral, NORMAL BREATHING PATTERN. absent: Rhonchi, Wheezes - Cardiovascular Exam Cardiovascular Exam: Irregular Rhythm (irregularly), +S1, +S2. absent: Diastolic murmur, RRR, Systolic Murmur - GI/Abdominal Exam GI & Abdominal Exam: Normal Bowel Sounds, Soft. absent: Distended, Firm, Guarding, Rigid, Tenderness - Extremities Exam Additional comments: RLE: significant edema to right lower extremity and foot with lichenification and verrucous plaques to skin. Malodorous papillomatous lesions noted. Area of ulceration to lateral calf. 2+ pitting edema. Deformity to phalanges. Diminished pedal pulse. LLE: trace edema to left lower extremity. Pedal edema. Deformed phalanges. - Neurological Exam Neurological exam: Alert, Oriented x3 - Skin Skin Exam: Dry, Intact, Normal Color, Warm Results - Vital Signs Recent Vital Signs: Last Vital Signs Temp 98.2 F 12/18/16 10:23 Pulse 93 H 12/18/16 10:23 Resp 16 12/18/16 10:23 BP 121/69 12/18/16 10:23 Pulse Ox 99 12/18/16 10:23 - Labs Result Diagrams: 12/18/16 06:11 12/18/16 06:11 Labs: Laboratory Results - last 24 hr 12/17/16 12/17/16 12/18/16 06:00 16:17 06:11 WBC 10.1 RBC 3.04 L Hgb 7.5 L Hct 23.3 L MCV 76.7 L MCH 24.5 L MCHC 32.0 L RDW 24.8 H Plt Count 250 MPV 8.5 Neut % (Auto) 42.3 L Lymph % (Auto) 44.8 H [place] % (Auto) 8.8 Eos % (Auto) 3.0 Baso % (Auto) 1.1 Neut # 4.3 Lymph # 4.5 H [place] # 0.9 H Eos # 0.3 Baso # 0.1 Sodium 130 L Potassium 4.2 Chloride 98 Carbon Dioxide 26 Anion Gap 10 BUN 8 L Creatinine 0.7 L Est GFR ( Amer) > 60 Est GFR (Non-Af Amer) > 60 POC Glucose (mg/dL) Random Glucose 119 H Hemoglobin A1c 6.8 H Calcium 7.3 L Phosphorus 3.8 Magnesium 1.3 L Total Bilirubin 3.3 H AST 73 H ALT 30 Alkaline Phosphatase 172 H D Total Creatine Kinase 288 H CK-MB (Mass) 2.22 Troponin I, Quant < 0.0120 Total Protein 7.1 Albumin 2.5 L Globulin 4.6 H Albumin/Globulin Ratio 0.5 L Hepatitis A IgM Ab Negative Hep Bs Antigen Negative Hep B Core IgM Ab Negative Hepatitis C Antibody Negative HIV 1&2 Antibody Screen Negative 12/18/16 12:04 WBC RBC Hgb Hct MCV MCH MCHC RDW Plt Count MPV Neut % (Auto) Lymph % (Auto) [place] % (Auto) Eos % (Auto) Baso % (Auto) Neut # Lymph # [place] # Eos # Baso # Sodium Potassium Chloride Carbon Dioxide Anion Gap BUN Creatinine Est GFR ( Amer) Est GFR (Non-Af Amer) POC Glucose (mg/dL) 136 H Random Glucose Hemoglobin A1c Calcium Phosphorus Magnesium Total Bilirubin AST ALT Alkaline Phosphatase Total Creatine Kinase CK-MB (Mass) Troponin I, Quant Total Protein Albumin Globulin Albumin/Globulin Ratio Hepatitis A IgM Ab Hep Bs Antigen Hep B Core IgM Ab Hepatitis C Antibody HIV 1&2 Antibody Screen Assessment & Plan (1) Atrial fibrillation with rapid ventricular response Assessment and Plan: Continue rate control with Nadolol 20mg po daily and cardizem 30mg po qid Contraindication for anticoagulation 2/2 to GI bleeding case discussed with Dr. Kenyatta Darnell PGY1 Status: c - Date & Time Date: 12/18/16 Time: 14:04 <Jermaine You A - Last Filed: 01/26/17 10:34> Results - Vital Signs Recent Vital Signs: Last Vital Signs Temp 98.4 F 12/21/16 15:24 Pulse 65 12/21/16 15:24 Resp 20 12/21/16 15:24 BP 117/68 12/21/16 15:24 Pulse Ox 99 12/21/16 15:24 - Labs Result Diagrams: 12/21/16 07:51 12/21/16 07:51 Attending/Attestation - Attestation I have personally seen and examined this patient.: Yes I have fully participated in the care of the patient.: Yes I have reviewed all pertinent clinical information: Yes Notes (Text): 01/26/17 10:34 Pt control rate with beta [place] no a/c due to risk of bleeding
[2016-12-18] MEDS: (Novolog) Insulin Aspart, Recombinant 100 u/ml 10 ml vial SC SCH ×3 (14:34→22:07)
--- NOTE | 2016-12-18 16:14 | CP.PCM.PN ---
<Idania Candelaria - Last Filed: 12/18/16 15:46> Subjective - Date & Time of Evaluation Date of Evaluation: 12/18/16 Time of Evaluation: 15:46 - Subjective Subjective: Patient seen and examined at bedside. Patient states he continues to have right shoulder pain, back pain, and right lower extremity pain. He denies tremors. Patient denies abdominal pain, nausea, vomiting, hematochezia, and melanic stool. He also denies chest pain, palpitations, and shortness of breath. Consent obtained for blood transfusion. Objective - Vital Signs/Intake and Output Vital Signs (last 24 hours): Temp Pulse Resp BP Pulse Ox 98.2 F 93 H 16 121/69 99 12/18/16 10:23 12/18/16 10:23 12/18/16 10:23 12/18/16 10:23 12/18/16 10:23 Intake and Output: 12/18/16 12/18/16 06:59 18:59 Intake Total 640 350 Output Total 1000 Balance -360 350 - Medications Medications: Current Medications Diltiazem HCl (Cardizem) 30 mg PO QID [facility] Last Admin: 12/18/16 14:54 Dose: 30 mg Folic Acid (Folic Acid) 1 mg PO DAILY [facility] Last Admin: 12/18/16 11:25 Dose: 1 mg Octreotide Acetate 1,250 mcg/ (Dextrose) 250 mls @ 5 mls/hr IV .Q24H [facility] PRN Reason: 25 MCG/HR Last Admin: 12/18/16 12:35 Dose: 5 mls/hr Influenza Virus Vaccine (Afluria) 45 mcg IM .ONCE ONE Stop: 12/19/16 14:01 Insulin Aspart (Novolog) 0 unit SC ACHS [facility] PRN Reason: Protocol Last Admin: 12/18/16 14:34 Dose: Not Given Lorazepam (Ativan) 2 mg PO Q4H PRN PRN Reason: withdrawal Multivitamins (Hexavitamin) 1 tab PO DAILY [facility] Last Admin: 12/18/16 12:33 Dose: 1 tab Nadolol (Corgard) 20 mg PO DAILY [facility] Last Admin: 12/18/16 11:25 Dose: 20 mg Ondansetron HCl (Zofran Inj) 4 mg IVP Q6H PRN PRN Reason: Nausea/Vomiting Pantoprazole Sodium (Protonix Ec Tab) 40 mg PO DAILY [facility] Last Admin: 12/18/16 11:25 Dose: 40 mg Pneumococcal Polyvalent Vaccine (Pneumovax 23 Vaccine) 0.5 ml IM .ONCE ONE Stop: 12/19/16 14:01 Thiamine HCl (Vitamin B1 Tab) 100 mg PO DAILY [facility] Last Admin: 12/18/16 11:25 Dose: 100 mg Triamcinolone Acetonide (Kenalog 0.1% Cream) 0 appl TOP BID [facility] Last Admin: 12/18/16 12:32 Dose: 1 appl - Labs Labs: 12/18/16 06:11 12/18/16 06:11 PT 21.7 SECONDS (9.7-12.2) H 12/17/16 06:00 INR 1.9 12/17/16 06:00 APTT 38 SECONDS (21-34) H 12/17/16 06:00 - Constitutional Appears: Non-toxic, No Acute Distress - Head Exam Head Exam: ATRAUMATIC, NORMAL INSPECTION, NORMOCEPHALIC - Eye Exam Eye Exam: EOMI, PERRL, Scleral icterus - ENT Exam ENT Exam: Mucous Membranes Moist - Neck Exam Neck Exam: Normal Inspection - Respiratory Exam Respiratory Exam: Clear to Ausculation Bilateral, NORMAL BREATHING PATTERN. absent: Rales, Rhonchi, Wheezes - Cardiovascular Exam Cardiovascular Exam: +S1, +S2. absent: Tachycardia - GI/Abdominal Exam GI & Abdominal Exam: Soft, Normal Bowel Sounds. absent: Firm, Tenderness - Extremities Exam Extremities Exam: Pedal Edema, Tenderness Additional comments: RLE: Edema to right lower extremity and foot with lichenification and verrucous plaques to skin. Pedal pulse appreciated. LLE: trace edema to left lower extremity. Pedal edema. Deformed phalanges. - Neurological Exam Neurological Exam: Alert, Awake, Oriented x3 - Psychiatric Exam Psychiatric exam: Normal Affect, Normal Mood - Skin Skin Exam: Intact, Normal Color Assessment and Plan - Assessment and Plan (Free Text) Assessment: Right Lower Extremity Edema Likely Elephantiasis Nostra Verrucosa edema significantly improved Venous Duplex and Arterial Duplex Scan ordered Maintain Right Lower Extremity elevated Wound Care Morphine 1 mg q3h PRN for severe pain PT/OT Microcytic Anemia Will transfuse 1 unit of pRBCs Hemoglobin 7.5, Hematocrit 23.3, MCV 76.7, Target Cells Moderate Retic Count 2.9, Iron 35, TIBC 301, % Saturation 12 Rule out GI bleed EGD: Small esophageal varices; retained food in stomach; multiple small polyps in antrum. Gastric Emptying Study for gastroparesis - Liquid Diet Started on Octeotide drip Stool Occult Blood negative GI, Dr. Degroot, consulted. help appreciated. Atrial Fibrillation with RVR EKG: A-fib with RVR Patient denies prior history of a-fib Nadolol 20 mg po daily and Cardizem 30 mg po QID for rate control Plan for EM to evaluate for clot per cardio Anticoagulation held due to GI bleed SHERLEY Panel - negative Cardiology, Dr. You, consulted. Alcohol Abuse Disorder Alcohol, Quantitative 47 on admission Denying current alcohol abuse AST 73/ALT 30 Alk Phos 172 Hyperbilirubinemia - total bilirubin 3.3 Abdominal US: Examination limited by bowel gas. Gallbladder wall appears thickened measuring approximately 5 mm with trace pericholecystic edema. No gallstones identified. Negative sonographic West's sign as assessed by the road gang supervisor. 1.9 x 2.3 x 2.1 cm left renal cyst. Trace perihepatic ascites. Nodular hepatic contour. Correlate clinically for possibility of cirrhosis. f/u ammonia level Ativan 2 mg po q4h prn for withdrawal symptoms Zofran 4 mg IVP q6h prn for nausea/vomiting Continue folic acid, multivitamins, and thiamine daily Counseled on alcohol cessation seizure and aspiration precautions Transaminitis Likely secondary to alcohol abuse AST 73, ALT 30 Hepatitis Panel -Negative Abdominal Ultrasound - see above Monitor Coagulopathy Likely secondary to alcohol abuse/cirrhosis PT 21.7, PTT 38, INR 1.9 Vitamin K 10 mg SC stat Chemical VTE contraindicated Monitor Papular Dermatosis Gabe's disease (Transient Acantholytic Dermatosis) vs. HIV dermatosis vs. Folliculitis HIV Antibody - negative Triamcinolone 0.1% topical cream BID for 2 weeks to chest and back for pruritus Pseudo-Hypocalcemia calcium 7.3 albumin 2.6 corrected calcium 11.34 Hyponatremia Sodium 130 Will Monitor Prophylaxis Protonix 20 mg po daily Chemical VTE contraindicated due to coagulopathy Heart Healthy Diet <Bernard Bearden H - Last Filed: 12/18/16 16:56> Objective - Vital Signs/Intake and Output Vital Signs (last 24 hours): Temp Pulse Resp BP Pulse Ox 98.2 F 93 H 16 121/69 99 12/18/16 10:23 12/18/16 10:23 12/18/16 10:23 12/18/16 10:23 12/18/16 10:23 Intake and Output: 12/18/16 12/18/16 06:59 18:59 Intake Total 640 657 Output Total 1000 700 Balance -360 -43 - Medications Medications: Current Medications Diltiazem HCl (Cardizem) 30 mg PO QID [facility] Last Admin: 12/18/16 14:54 Dose: 30 mg Folic Acid (Folic Acid) 1 mg PO DAILY [facility] Last Admin: 12/18/16 11:25 Dose: 1 mg Octreotide Acetate 1,250 mcg/ (Dextrose) 250 mls @ 5 mls/hr IV .Q24H [facility] PRN Reason: 25 MCG/HR Last Admin: 12/18/16 12:35 Dose: 5 mls/hr Influenza Virus Vaccine (Afluria) 45 mcg IM .ONCE ONE Stop: 12/19/16 14:01 Insulin Aspart (Novolog) 0 unit SC ACHS [facility] PRN Reason: Protocol Last Admin: 12/18/16 14:34 Dose: Not Given Lorazepam (Ativan) 2 mg PO Q4H PRN PRN Reason: withdrawal Morphine Sulfate (Morphine) 1 mg IVP Q3H PRN PRN Reason: Pain, severe (8-10) Multivitamins (Hexavitamin) 1 tab PO DAILY [facility] Last Admin: 12/18/16 12:33 Dose: 1 tab Nadolol (Corgard) 20 mg PO DAILY [facility] Last Admin: 12/18/16 11:25 Dose: 20 mg Ondansetron HCl (Zofran Inj) 4 mg IVP Q6H PRN PRN Reason: Nausea/Vomiting Pantoprazole Sodium (Protonix Ec Tab) 40 mg PO DAILY [facility] Last Admin: 12/18/16 11:25 Dose: 40 mg Pneumococcal Polyvalent Vaccine (Pneumovax 23 Vaccine) 0.5 ml IM .ONCE ONE Stop: 12/19/16 14:01 Thiamine HCl (Vitamin B1 Tab) 100 mg PO DAILY [facility] Last Admin: 12/18/16 11:25 Dose: 100 mg Triamcinolone Acetonide (Kenalog 0.1% Cream) 0 appl TOP BID [facility] Last Admin: 12/18/16 12:32 Dose: 1 appl - Labs Labs: 12/18/16 06:11 12/18/16 06:11 PT 21.7 SECONDS (9.7-12.2) H 12/17/16 06:00 INR 1.9 12/17/16 06:00 APTT 38 SECONDS (21-34) H 12/17/16 06:00 Attending/Attestation - Attestation I have personally seen and examined this patient.: Yes I have fully participated in the care of the patient.: Yes I have reviewed all pertinent clinical information, including history, physical exam and plan: Yes Notes (Text): 12/18/16 16:52 Medical attending: Patient was seen and examined by me, agree with the above note by director medical economics. The patient had EGD earlier today, the results of which show small esophageal varices; retained food in stomach; multiple small polyps in antrum. When we saw him in the morning he was on octreotide drip As well as beta austin. The patient has anemia hemoglobin was 7.5, at this time were to give the patient just 1 unit of PRBCs. There is also question of potential atrial fibrillation as well, he's currently on Cardizem as well as beta austin for rate control. He's not on any oral anticoagulation at this time due to concerns of the anemia from potential GI bleeding The patient denies alcohol use now, but when he came in he was tested his serum alcohol was elevated however not greatly. He's currently on Ativan taper at this moment Thank you very much, Bernard Bearden
--- NOTE | 2016-12-19 07:44 | CP.PCM.PN ---
<Albert Darnell - Last Filed: 12/19/16 10:46> Subjective - Date & Time of Evaluation Date of Evaluation: 12/19/16 Time of Evaluation: 07:37 - Subjective Subjective: Cardiology Progress Note Dr. You Patient seen and examined at the bedside. No acute distress. No acute events overnight. Nursing staff reports no issues. The patient is resting comfortably in bed. Patient is for gastric emptying study this morning. The patient denies all cardiopulmonary complaints. 12 point review of systems was preformed and the patient denied all complaints at this time. Objective - Vital Signs/Intake and Output Vital Signs (last 24 hours): Temp Pulse Resp BP Pulse Ox 98 F 65 20 110/65 97 12/19/16 02:30 12/19/16 04:02 12/19/16 02:30 12/19/16 02:30 12/19/16 00:15 Intake and Output: 12/19/16 12/19/16 06:59 18:59 Intake Total 1570 Output Total 1050 Balance 520 - Medications Medications: Current Medications Diltiazem HCl (Cardizem) 30 mg PO QID [facility] Last Admin: 12/18/16 22:04 Dose: 30 mg Folic Acid (Folic Acid) 1 mg PO DAILY [facility] Last Admin: 12/18/16 11:25 Dose: 1 mg Octreotide Acetate 1,250 mcg/ (Dextrose) 250 mls @ 5 mls/hr IV .Q24H [facility] PRN Reason: 25 MCG/HR Last Admin: 12/18/16 12:35 Dose: 5 mls/hr Influenza Virus Vaccine (Afluria) 45 mcg IM .ONCE ONE Stop: 12/19/16 14:01 Insulin Aspart (Novolog) 0 unit SC ACHS [facility] PRN Reason: Protocol Last Admin: 12/18/16 22:07 Dose: Not Given Lorazepam (Ativan) 2 mg PO Q4H PRN PRN Reason: withdrawal Morphine Sulfate (Morphine) 1 mg IVP Q3H PRN PRN Reason: Pain, severe (8-10) Multivitamins (Hexavitamin) 1 tab PO DAILY [facility] Last Admin: 12/18/16 12:33 Dose: 1 tab Nadolol (Corgard) 20 mg PO DAILY [facility] Last Admin: 12/18/16 11:25 Dose: 20 mg Ondansetron HCl (Zofran Inj) 4 mg IVP Q6H PRN PRN Reason: Nausea/Vomiting Pantoprazole Sodium (Protonix Ec Tab) 40 mg PO DAILY [facility] Last Admin: 12/18/16 11:25 Dose: 40 mg Pneumococcal Polyvalent Vaccine (Pneumovax 23 Vaccine) 0.5 ml IM .ONCE ONE Stop: 12/19/16 14:01 Thiamine HCl (Vitamin B1 Tab) 100 mg PO DAILY [facility] Last Admin: 12/18/16 11:25 Dose: 100 mg Triamcinolone Acetonide (Kenalog 0.1% Cream) 0 appl TOP BID [facility] Last Admin: 12/18/16 17:50 Dose: 1 appl - Labs Labs: 12/18/16 06:11 12/18/16 06:11 PT 21.7 SECONDS (9.7-12.2) H 12/17/16 06:00 INR 1.9 12/17/16 06:00 APTT 38 SECONDS (21-34) H 12/17/16 06:00 - Constitutional Appears: Well, Non-toxic, No Acute Distress - Head Exam Head Exam: ATRAUMATIC, NORMAL INSPECTION, NORMOCEPHALIC - Eye Exam Eye Exam: EOMI, Normal appearance - ENT Exam ENT Exam: Mucous Membranes Moist - Neck Exam Neck Exam: Full ROM, Normal Inspection. absent: Lymphadenopathy - Respiratory Exam Respiratory Exam: Clear to Ausculation Bilateral, NORMAL BREATHING PATTERN. absent: Rhonchi, Wheezes - Cardiovascular Exam Cardiovascular Exam: Irregular Rhythm (irregularly), +S1, +S2. absent: Diastolic murmur, REGULAR RHYTHM, RRR, Murmur - GI/Abdominal Exam GI & Abdominal Exam: Soft, Normal Bowel Sounds. absent: Distended, Guarding, Tenderness - Extremities Exam Extremities Exam: Full ROM, Normal Capillary Refill, Normal Inspection. absent : Joint Swelling, Pedal Edema - Back Exam Back Exam: NORMAL INSPECTION. absent: CVA tenderness (L), CVA tenderness (R) - Neurological Exam Neurological Exam: Alert, Awake, CN II-XII Intact, Oriented x3 - Skin Skin Exam: Dry, Intact, Normal Color, Warm Assessment and Plan (1) Atrial fibrillation with rapid ventricular response Assessment & Plan: Continue rate control with Nadolol 20mg po daily and cardizem 30mg po qid Contraindication for anticoagulation at this time 2/2 to GI bleeding Patient is s/p 1 unit of PRBCs overnight (AM H&H 9.6) Patient for gastric emptying scan today per GI (Dr. oTdd) 12/17/16 EKG- irregularly irregular rhythm, physiologic axis, normal QRS duration , prolonged QTc interval, no ST or T wave abnormalities Case Discussed with Dr. Kenyatta Darnell PGY1 Status: c <Jermaine You A - Last Filed: 01/26/17 10:35> Objective - Vital Signs/Intake and Output Vital Signs (last 24 hours): Temp Pulse Resp BP Pulse Ox 98.4 F 65 20 117/68 99 12/21/16 15:24 12/21/16 15:24 12/21/16 15:24 12/21/16 15:24 12/21/16 15:24 - Labs Labs: 12/21/16 07:51 12/21/16 07:51 PT 25.0 SECONDS (9.7-12.2) H 12/21/16 07:51 INR 2.1 12/21/16 07:51 APTT 39 SECONDS (21-34) H 12/21/16 07:51 Attending/Attestation - Attestation I have personally seen and examined this patient.: Yes I have fully participated in the care of the patient.: Yes I have reviewed all pertinent clinical information, including history, physical exam and plan: Yes Notes (Text): 01/26/17 10:35 rate controled continue meds
--- NOTE | 2016-12-19 07:58 | CARD ---
APPROVED REPORT EKG Measurement Heart [id number] <Conclusion> Atrial flutter with variable AV block Abnormal ECG
--- NOTE | 2016-12-19 08:01 | CARD ---
APPROVED REPORT EKG Measurement Heart [id number] <Conclusion> Atrial fibrillation with rapid ventricular response Abnormal ECG
[2016-12-19 08:05] LABS: INR 1.9
[2016-12-19 08:10] LABS: HEMATOCRIT 29.2 % (35.0-51.0); MEAN CELL VOLUME 77.9 fL (80.0-94.0); MEAN CORPUSCULAR HEMOGLOBIN 25.6 pg (27.0-31.0); MEAN CORPUSCULAR HGB CONC 32.9 g/dL (33.0-37.0); MEAN PLATELET VOLUME 8.6 fL (7.2-11.7); RED CELL DISTRIBUTION WIDTH 24.3 % (11.5-14.5); WHITE BLOOD COUNT 9.7 K/uL (4.8-10.8)
[2016-12-19 08:12] LABS: CHLORIDE 99 mmol/L (98-107); POTASSIUM 3.6 mmol/L (3.6-5.2); SODIUM 132 mmol/L (132-148)
[2016-12-19 08:14] LABS: BILIRUBIN,DIRECT 2.7 mg/dL (0.0-0.4); BILIRUBIN,TOTAL 4.1 mg/dL (0.2-1.3); CARBON DIOXIDE 26 mmol/L (22-30); GFR AFRICAN-AMERICAN > 60
[2016-12-19 08:15] LABS: ALB/GLOB RATIO 0.5 (1.0-2.1); ALKALINE PHOSPHATASE 140 U/L (38-126); ALT/SGPT 21 U/L (21-72); AST/SGOT 73 U/L (17-59); BLOOD UREA NITROGEN 11 mg/dL (9-20); CALCIUM 7.3 mg/dl (8.6-10.4); GLUCOSE,RANDOM 101 mg/dL (75-110); TOTAL PROTEIN 7.2 g/dL (6.3-8.3)
[2016-12-19 08:16] LABS: MAGNESIUM 1.4 mg/dL (1.6-2.3)
[2016-12-19] MEDS: (Novolog) Insulin Aspart, Recombinant 100 u/ml 10 ml vial SC SCH ×4 (08:36→21:39)
[2016-12-19] MEDS ORDERED: Potassium Chloride 20 mEq ER Tab PO STA (09:34)
[2016-12-19] MEDS: Pantoprazole 40 mg EC Tab PO SCH (10:41)
[2016-12-19] MEDS: Multiple Vitamins Tab PO SCH (10:41)
[2016-12-19 11:07] LABS: LYMPH # 1.3 K/uL (1.0-4.3); MONO # 1.2 K/uL (0.0-0.8)
[2016-12-19 11:08] LABS: EOS # 0.6 K/uL (0.0-0.7)
[2016-12-19] MEDS ORDERED: Influenza Virus Vaccine 45 mcg/0.5 ml Syr IM ONE (14:00)
[2016-12-19] MEDS ORDERED: Pneumococcal 23-Valent Vaccine IM ONE (14:00)
[2016-12-19] MEDS ORDERED: Potassium Chloride 20 mEq ER Tab PO ONE (14:15)
--- NOTE | 2016-12-19 17:07 | CP.PCM.PN ---
<BariIdania - Last Filed: 12/19/16 17:04> Subjective - Date & Time of Evaluation Date of Evaluation: 12/19/16 Time of Evaluation: 17:04 - Subjective Subjective: Patient seen and examined at bedside. Patient complaining of back pain. Encouraged patient to ambulate. He denies right lower extremity pain. He is asking to eat but for gastric emptying scan today. He denies fever, chills, chest pain, palpitations, shortness of breath, abdominal pain, nausea, vomiting , diarrhea, constipation, dysuria. Objective - Vital Signs/Intake and Output Vital Signs (last 24 hours): Temp Pulse Resp BP Pulse Ox 97.9 F 64 20 112/68 99 12/19/16 15:20 12/19/16 15:20 12/19/16 15:20 12/19/16 15:20 12/19/16 15:20 Intake and Output: 12/19/16 12/19/16 06:59 18:59 Intake Total 1570 Output Total 1050 Balance 520 - Medications Medications: Current Medications Diltiazem HCl (Cardizem) 30 mg PO QID [facility] Last Admin: 12/19/16 14:05 Dose: 30 mg Folic Acid (Folic Acid) 1 mg PO DAILY [facility] Last Admin: 12/19/16 10:41 Dose: 1 mg Octreotide Acetate 1,250 mcg/ (Dextrose) 250 mls @ 5 mls/hr IV .Q24H [facility] PRN Reason: 25 MCG/HR Last Admin: 12/18/16 12:35 Dose: 5 mls/hr Insulin Aspart (Novolog) 0 unit SC ACHS [facility] PRN Reason: Protocol Last Admin: 12/19/16 12:51 Dose: Not Given Lorazepam (Ativan) 2 mg PO Q4H PRN PRN Reason: withdrawal Morphine Sulfate (Morphine) 1 mg IVP Q3H PRN PRN Reason: Pain, severe (8-10) Multivitamins (Hexavitamin) 1 tab PO DAILY [facility] Last Admin: 12/19/16 10:41 Dose: 1 tab Nadolol (Corgard) 20 mg PO DAILY [facility] Last Admin: 12/19/16 10:42 Dose: 20 mg Ondansetron HCl (Zofran Inj) 4 mg IVP Q6H PRN PRN Reason: Nausea/Vomiting Pantoprazole Sodium (Protonix Ec Tab) 40 mg PO DAILY [facility] Last Admin: 12/19/16 10:41 Dose: 40 mg Thiamine HCl (Vitamin B1 Tab) 100 mg PO DAILY [facility] Last Admin: 12/19/16 10:41 Dose: 100 mg Triamcinolone Acetonide (Kenalog 0.1% Cream) 0 appl TOP BID [facility] Last Admin: 12/19/16 10:41 Dose: 1 appl - Labs Labs: 12/19/16 07:50 12/19/16 07:50 PT 22.4 SECONDS (9.7-12.2) H 12/19/16 07:50 INR 1.9 12/19/16 07:50 APTT 38 SECONDS (21-34) H 12/17/16 06:00 - Constitutional Appears: Non-toxic, No Acute Distress, Other (appears jaundiced ) - Head Exam Head Exam: ATRAUMATIC, NORMAL INSPECTION, NORMOCEPHALIC - Eye Exam Eye Exam: EOMI, Normal appearance, PERRL, Scleral icterus - ENT Exam ENT Exam: Mucous Membranes Moist, Normal Exam - Neck Exam Neck Exam: Full ROM, Normal Inspection - Respiratory Exam Respiratory Exam: Clear to Ausculation Bilateral, NORMAL BREATHING PATTERN. absent: Rales, Rhonchi, Wheezes - Cardiovascular Exam Cardiovascular Exam: Tachycardia, +S1, +S2 - GI/Abdominal Exam GI & Abdominal Exam: Soft, Normal Bowel Sounds. absent: Guarding, Rigid, Tenderness - Extremities Exam Additional comments: right lower extremity edema significantly improved. Xerotic, verrucous plaque inferior to knee. Nontender to palpation. Deformity to bilateral feet. - Neurological Exam Neurological Exam: Alert, Awake, Oriented x3 - Psychiatric Exam Psychiatric exam: Normal Affect, Normal Mood - Skin Additional comments: jaundiced Assessment and Plan - Assessment and Plan (Free Text) Assessment: Right Lower Extremity Edema Likely Elephantiasis Nostra Verrucosa edema significantly improved For Venous Duplex and Arterial Duplex Scan Maintain Right Lower Extremity elevated Wound Care Morphine 1 mg q3h PRN for severe pain PT/OT Microcytic Anemia transfused 1 unit of pRBCs yesterday Hemoglobin 9.6, Hematocrit 29.2, MCV 77.9 Retic Count 2.9, Iron 35, TIBC 301, % Saturation 12 Rule out GI bleed EGD: Small esophageal varices; retained food in stomach; multiple small polyps in antrum. f/u Gastric Emptying Study for gastroparesis Continued on Octreotide drip Stool Occult Blood negative GI, Dr. Degroot, consulted. help appreciated. Atrial Fibrillation with RVR 12/17/16 EKG- irregularly irregular rhythm, physiologic axis, normal QRS duration , prolonged QTc interval, no ST or T wave abnormalities Patient denies prior history of a-fib Continue Nadolol 20 mg po daily and Cardizem 30 mg po QID for rate control f/u echocardiogram report Anticoagulation held due to GI bleed SHERLEY Panel - negative Cardiology, Dr. You, consulted. Alcohol Abuse Disorder Alcohol, Quantitative 47 on admission Denying current alcohol abuse AST 73/ALT 21 Alk Phos 140 Hyperbilirubinemia - total bilirubin 4.1, direct bilirubin 2.7 Abdominal US: Examination limited by bowel gas. Gallbladder wall appears thickened measuring approximately 5 mm with trace pericholecystic edema. No gallstones identified. Negative sonographic West's sign as assessed by the roof painter. 1.9 x 2.3 x 2.1 cm left renal cyst. Trace perihepatic ascites. Nodular hepatic contour. Correlate clinically for possibility of cirrhosis. f/u ammonia level Ativan 2 mg po q4h prn for withdrawal symptoms Zofran 4 mg IVP q6h prn for nausea/vomiting Continue folic acid, multivitamins, and thiamine daily Counseled on alcohol cessation seizure and aspiration precautions Transaminitis Likely secondary to alcohol abuse AST 73, ALT 21 Hepatitis Panel -Negative Abdominal Ultrasound - see above Monitor Coagulopathy Likely secondary to alcohol abuse/cirrhosis PT 22.4, INR 1.9 Vitamin K 10 mg SC given yesterday Chemical VTE contraindicated Monitor Papular Dermatosis [place]'s disease (Transient Acantholytic Dermatosis) vs. HIV dermatosis vs. Folliculitis Pruritus improved HIV Antibody - negative Triamcinolone 0.1% topical cream BID for 2 weeks to chest and back for pruritus Pseudo-Hypocalcemia calcium 7.3 albumin 2.6 corrected calcium 11.34 Hyponatremia improved Sodium 132 Will Monitor Prophylaxis Protonix 20 mg po daily Chemical VTE contraindicated due to coagulopathy Heart Healthy Diet <Bernard Bearden - Last Filed: 12/19/16 18:15> Objective - Vital Signs/Intake and Output Vital Signs (last 24 hours): Temp Pulse Resp BP Pulse Ox 97.9 F 64 20 112/68 99 12/19/16 15:20 12/19/16 15:20 12/19/16 15:20 12/19/16 15:20 12/19/16 15:20 Intake and Output: 12/19/16 12/19/16 06:59 18:59 Intake Total 1570 Output Total 1050 Balance 520 - Medications Medications: Current Medications Diltiazem HCl (Cardizem) 30 mg PO QID [facility] Last Admin: 12/19/16 18:12 Dose: 30 mg Folic Acid (Folic Acid) 1 mg PO DAILY [facility] Last Admin: 12/19/16 10:41 Dose: 1 mg Octreotide Acetate 1,250 mcg/ (Dextrose) 250 mls @ 5 mls/hr IV .Q24H [facility] PRN Reason: 25 MCG/HR Last Admin: 12/18/16 12:35 Dose: 5 mls/hr Insulin Aspart (Novolog) 0 unit SC ACHS [facility] PRN Reason: Protocol Last Admin: 12/19/16 12:51 Dose: Not Given Lorazepam (Ativan) 2 mg PO Q4H PRN PRN Reason: withdrawal Morphine Sulfate (Morphine) 1 mg IVP Q3H PRN PRN Reason: Pain, severe (8-10) Multivitamins (Hexavitamin) 1 tab PO DAILY [facility] Last Admin: 12/19/16 10:41 Dose: 1 tab Nadolol (Corgard) 20 mg PO DAILY [facility] Last Admin: 12/19/16 10:42 Dose: 20 mg Ondansetron HCl (Zofran Inj) 4 mg IVP Q6H PRN PRN Reason: Nausea/Vomiting Pantoprazole Sodium (Protonix Ec Tab) 40 mg PO DAILY [facility] Last Admin: 12/19/16 10:41 Dose: 40 mg Thiamine HCl (Vitamin B1 Tab) 100 mg PO DAILY [facility] Last Admin: 12/19/16 10:41 Dose: 100 mg Triamcinolone Acetonide (Kenalog 0.1% Cream) 0 appl TOP BID [facility] Last Admin: 12/19/16 10:41 Dose: 1 appl - Labs Labs: 12/19/16 07:50 12/19/16 07:50 PT 22.4 SECONDS (9.7-12.2) H 12/19/16 07:50 INR 1.9 12/19/16 07:50 APTT 38 SECONDS (21-34) H 12/17/16 06:00 Attending/Attestation - Attestation I have personally seen and examined this patient.: Yes I have fully participated in the care of the patient.: Yes I have reviewed all pertinent clinical information, including history, physical exam and plan: Yes Notes (Text): 12/19/16 18:13 Medical attending: Patient was seen and examined by me, agree with the above note by medical office technology instructor. Patient was reporting that he is feeling better, for I understand he still pending 1 additional GI study at this time yesterday he received 1 unit of PRBCs, and his hemoglobin is higher today were to continue to monitor this. At some point we'll advance the patient to diet. In the meantime he remains on Ativan when necessary for withdrawal As mentioned above in the resident note, he's currently getting beta austin as well as Cardizem for rate control because of the anemia he presented coming in and also concerns for GI bleeding he's currently not on anticoagulation he does have some liver cirrhosis, his INR is 1.9 Thank you very much, Bernard Bearden 12/19/16 18:14
--- NOTE | 2016-12-19 18:28 | CARD ---
APPROVED REPORT EXAM: Two-dimensional and M-mode echocardiogram with Doppler and color Doppler. Other Information Quality : GoodRhythm : NSR INDICATION Atrial Fibrillation RISK FACTORS Hypertension M-Mode DIMENSIONS RVDd2.22 (2.1-3.2cm)Left Atrium (MM)4.86 (2.5-4.0cm) IVSd1.18 (0.7-1.1cm)Aortic Root3.16 (2.2-3.7cm) LVDd4.75 (4.0-5.6cm)Aortic Cusp Exc.2.29 (1.5-2.0cm) PWd1.49 (0.7-1.1cm)FS (%) 36 % LVDs3.02 (2.0-3.8cm)LVEF (%)66 (>50%) Aortic Valve AoV Peak Iqzwzkgx619.5cm/Fernando Peak GR.11mmHg Mitral Valve MV E Lrmbomdm079.4cm/sMV A Isfnekyk51.2cm/sE/A ratio2.1 TDI E/Lateral E'0.0E/Medial E'0.0 Tricuspid Valve TR Peak [id number]/sTR Peak Gr.[id number] LEFT VENTRICLE The left ventricle is normal size. There is normal left ventricular wall thickness. The left ventricular function is normal. The left ventricular ejection fraction is within the normal range. There is normal LV segmental wall motion. The left ventricular diastolic function is normal. RIGHT VENTRICLE The right ventricle is normal size. There is normal right ventricular wall thickness. ATRIA The left atrium is mildly dilated. The right atrium size is normal. AORTIC VALVE The aortic valve is normal in structure. MITRAL VALVE Mitral regurgitation is mild. TRICUSPID VALVE There is mild to moderate tricuspid regurgitation. <Conclusion> Normal LV systolic function. Dilated LA. Mild MR. Moderate TR.
--- NOTE | 2016-12-19 18:47 | NM ---
PROCEDURE: Gastric emptying study. HISTORY: Gastroparesis COMPARISON: None TECHNIQUE: Standard protocol for this study/examination. . 1.2 mCi technetium 99 M sulfur colloid administered with solid material per institutional protocol FINDINGS: Commencement of examination: Percent emptied, solid 0% Percent residual, solid 100 % 1 hr: Percent emptied, solid 61 % Percent residual, solid 39 % 2 hr: Percent emptied, solid 81 % Percent residual, solid 19% 4 hr: Percent emptied, solid 93 % Percent residual, solid 7% IMPRESSION: No evidence of gastroparesis/delayed gastric emptying. Normal range percent empty 1 hr 0-63 % 2 hr 40-70 % 4 hr 90-100 % Normal range percent remaining 1 hr 37-90% 2 hr 30-60 % 4 hr 0-10 %
[2016-12-19] MEDS ORDERED: Octreotide 1,250 MCG in Dextrose 5% In Water 250 ML IV SCH (19:15)
--- NOTE | 2016-12-20 07:45 | CP.PCM.PN ---
<EliudIdania gallagher - Last Filed: 12/20/16 20:28> Subjective - Date & Time of Evaluation Date of Evaluation: 12/20/16 Time of Evaluation: 07:45 - Subjective Subjective: Patient seen and examined at bedside. Patient states he feels well today. He was able to ambulate. He continues to complain of back pain. Patient denies fever, chills, chest pain, shortness of breath, abdominal pain, nausea, vomiting , diarrhea, constipation, and dysuria. Objective - Vital Signs/Intake and Output Vital Signs (last 24 hours): Temp Pulse Resp BP Pulse Ox 99.0 F 70 20 109/63 97 12/19/16 23:10 12/20/16 00:20 12/19/16 23:10 12/19/16 23:10 12/19/16 23:10 Intake and Output: 12/20/16 12/20/16 06:59 18:59 Intake Total 280 Balance 280 - Medications Medications: Current Medications Diltiazem HCl (Cardizem) 30 mg PO QID [facility] Last Admin: 12/19/16 21:56 Dose: 30 mg Folic Acid (Folic Acid) 1 mg PO DAILY [facility] Last Admin: 12/19/16 10:41 Dose: 1 mg Octreotide Acetate 1,250 mcg/ (Dextrose) 252.5 mls @ 5.05 mls/hr IV .Q24H [facility] PRN Reason: 25 MCG/HR Last Admin: 12/19/16 20:22 Dose: 5.05 mls/hr Insulin Aspart (Novolog) 0 unit SC ACHS [facility] PRN Reason: Protocol Last Admin: 12/19/16 21:39 Dose: Not Given Lorazepam (Ativan) 2 mg PO Q4H PRN PRN Reason: withdrawal Morphine Sulfate (Morphine) 1 mg IVP Q3H PRN PRN Reason: Pain, severe (8-10) Multivitamins (Hexavitamin) 1 tab PO DAILY [facility] Last Admin: 12/19/16 10:41 Dose: 1 tab Nadolol (Corgard) 20 mg PO DAILY [facility] Last Admin: 12/19/16 10:42 Dose: 20 mg Ondansetron HCl (Zofran Inj) 4 mg IVP Q6H PRN PRN Reason: Nausea/Vomiting Pantoprazole Sodium (Protonix Ec Tab) 40 mg PO DAILY [facility] Last Admin: 12/19/16 10:41 Dose: 40 mg Thiamine HCl (Vitamin B1 Tab) 100 mg PO DAILY [facility] Last Admin: 12/19/16 10:41 Dose: 100 mg Triamcinolone Acetonide (Kenalog 0.1% Cream) 0 appl TOP BID [facility] Last Admin: 12/19/16 18:14 Dose: 1 appl - Labs Labs: 12/19/16 07:50 12/19/16 07:50 PT 22.4 SECONDS (9.7-12.2) H 12/19/16 07:50 INR 1.9 12/19/16 07:50 APTT 38 SECONDS (21-34) H 12/17/16 06:00 - Constitutional Appears: Non-toxic, No Acute Distress - Head Exam Head Exam: ATRAUMATIC, NORMAL INSPECTION, NORMOCEPHALIC - Eye Exam Eye Exam: EOMI, PERRL, Scleral icterus - ENT Exam ENT Exam: Mucous Membranes Moist, Normal Exam - Neck Exam Neck Exam: Full ROM, Normal Inspection - Respiratory Exam Respiratory Exam: Clear to Ausculation Bilateral, NORMAL BREATHING PATTERN - Cardiovascular Exam Cardiovascular Exam: +S1, +S2. absent: Tachycardia - GI/Abdominal Exam GI & Abdominal Exam: Soft, Normal Bowel Sounds. absent: Guarding, Rigid, Tenderness - Extremities Exam Additional comments: right lower extremity edema significantly improved. Xerotic, verrucous plaque inferior to knee. Nontender to palpation. Deformity to bilateral feet. 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 Superficial phlebitis of right great saphenous vein at the thigh level Start warm compresses Arterial Duplex Scan Maintain Right Lower Extremity elevated Wound Care Morphine 1 mg q3h PRN for severe pain PT/OT Microcytic Anemia Hemoglobin down to 8.7 from 9.6, Hematocrit down to 26.9 from 29.2, MCV 77.7 Retic Count 2.9, Iron 35, TIBC 301, % Saturation 12 Rule out GI bleed EGD: Small esophageal varices; retained food in stomach; multiple small polyps in antrum. f/u Gastric Emptying Study for gastroparesis Continued on Octreotide drip Stool Occult Blood negative GI, Dr. Degroot, consulted. help appreciated. Atrial Fibrillation with RVR 12/20/16: Continue current rate control management 12/17/16 EKG- irregularly irregular rhythm, physiologic axis, normal QRS duration , prolonged QTc interval, no ST or T wave abnormalities Patient denies prior history of a-fib Continue Nadolol 20 mg po daily and Cardizem 30 mg po QID for rate control f/u echocardiogram report Anticoagulation held due to GI bleed SHERLEY Panel - negative Cardiology, Dr. You, consulted. Alcohol Abuse Disorder Alcohol, Quantitative 47 on admission Denying current alcohol abuse AST 73/ALT 21 Alk Phos 140 Hyperbilirubinemia - total bilirubin 4.1, direct bilirubin 2.7 Abdominal US: Examination limited by bowel gas. Gallbladder wall appears thickened measuring approximately 5 mm with trace pericholecystic edema. No gallstones identified. Negative sonographic West's sign as assessed by the centrifuge separator tender. 1.9 x 2.3 x 2.1 cm left renal cyst. Trace perihepatic ascites. Nodular hepatic contour. Correlate clinically for possibility of cirrhosis. f/u ammonia level Ativan 2 mg po q4h prn for withdrawal symptoms Zofran 4 mg IVP q6h prn for nausea/vomiting Continue folic acid, multivitamins, and thiamine daily Counseled on alcohol cessation seizure and aspiration precautions Transaminitis Likely secondary to alcohol abuse AST 66, ALT 21 Hepatitis Panel -Negative Abdominal Ultrasound - see above Monitor Coagulopathy Likely secondary to alcohol abuse/cirrhosis PT 22.4, INR 1.9 Vitamin K 10 mg SC given yesterday Chemical VTE contraindicated Monitor Papular Dermatosis Gabe's disease (Transient Acantholytic Dermatosis) vs. HIV dermatosis vs. Folliculitis Pruritus improved HIV Antibody - negative Triamcinolone 0.1% topical cream BID for 2 weeks to chest and back for pruritus Pseudo-Hypocalcemia calcium 7.3 albumin 2.6 corrected calcium 11.34 Hyponatremia improved Sodium 132 Will Monitor Prophylaxis Protonix 20 mg po daily Chemical VTE contraindicated due to coagulopathy Heart Healthy Diet <Bernard Bearden H - Last Filed: 12/21/16 15:00> Objective - Vital Signs/Intake and Output Vital Signs (last 24 hours): Temp Pulse Resp BP Pulse Ox 98.8 F 67 18 113/68 98 12/21/16 08:21 12/21/16 08:21 12/21/16 08:21 12/21/16 08:21 12/21/16 08:21 Intake and Output: 12/21/16 12/21/16 06:59 18:59 Intake Total 609.2 Output Total 750 Balance -140.8 - Medications Medications: Current Medications Diltiazem HCl (Cardizem) 30 mg PO QID [facility] Last Admin: 12/21/16 13:12 Dose: 30 mg Folic Acid (Folic Acid) 1 mg PO DAILY [facility] Last Admin: 12/21/16 09:39 Dose: 1 mg Insulin Aspart (Novolog) 0 unit SC ACHS [facility] PRN Reason: Protocol Last Admin: 12/21/16 12:30 Dose: 1 unit Lorazepam (Ativan) 2 mg PO Q4H PRN PRN Reason: withdrawal Morphine Sulfate (Morphine) 1 mg IVP Q3H PRN PRN Reason: Pain, severe (8-10) Multivitamins (Hexavitamin) 1 tab PO DAILY [facility] Last Admin: 12/21/16 09:39 Dose: 1 tab Nadolol (Corgard) 20 mg PO DAILY [facility] Last Admin: 12/21/16 09:39 Dose: 20 mg Ondansetron HCl (Zofran Inj) 4 mg IVP Q6H PRN PRN Reason: Nausea/Vomiting Pantoprazole Sodium (Protonix Ec Tab) 40 mg PO DAILY [facility] Last Admin: 12/21/16 09:39 Dose: 40 mg Thiamine HCl (Vitamin B1 Tab) 100 mg PO DAILY [facility] Last Admin: 12/21/16 09:39 Dose: 100 mg Triamcinolone Acetonide (Kenalog 0.1% Cream) 0 appl TOP BID [facility] Last Admin: 12/21/16 09:39 Dose: 1 appl Vitamin A (Vitamin A & D Oint Ud Foilpak) 1 ea TOP BID [facility] Last Admin: 12/21/16 09:39 Dose: 1 ea - Labs Labs: 12/21/16 07:51 12/21/16 07:51 PT 25.0 SECONDS (9.7-12.2) H 12/21/16 07:51 INR 2.1 12/21/16 07:51 APTT 39 SECONDS (21-34) H 12/21/16 07:51 Attending/Attestation - Attestation I have personally seen and examined this patient.: Yes I have fully participated in the care of the patient.: Yes I have reviewed all pertinent clinical information, including history, physical exam and plan: Yes Notes (Text): Medical attending: Patient was seen and examined by me, agrees the above note by biomedical photographer. Need to watch Hgb, he has just had a blood transfusion yesterday. HR is better controlled with the cardizem as well as BB, as mentioned previously not on anticoagulation since liver cirrosis as well as anemia and suspect GI bleeding. thank you Bernard Bearden
[2016-12-20] MEDS: (Novolog) Insulin Aspart, Recombinant 100 u/ml 10 ml vial SC SCH ×4 (08:12→22:03)
[2016-12-20 09:02] LABS: CHLORIDE 100 mmol/L (98-107); HEMATOCRIT 26.9 % (35.0-51.0); MEAN CELL VOLUME 77.7 fL (80.0-94.0); MEAN CORPUSCULAR HEMOGLOBIN 25.1 pg (27.0-31.0); MEAN CORPUSCULAR HGB CONC 32.3 g/dL (33.0-37.0); MEAN PLATELET VOLUME 8.5 fL (7.2-11.7); POTASSIUM 3.9 mmol/L (3.6-5.2); RED CELL DISTRIBUTION WIDTH 24.2 % (11.5-14.5); SODIUM 132 mmol/L (132-148); WHITE BLOOD COUNT 9.9 K/uL (4.8-10.8)
[2016-12-20 09:04] LABS: GFR AFRICAN-AMERICAN > 60
[2016-12-20 09:05] LABS: ALB/GLOB RATIO 0.5 (1.0-2.1); ALKALINE PHOSPHATASE 201 U/L (38-126); ALT/SGPT 25 U/L (21-72); AST/SGOT 66 U/L (17-59); BILIRUBIN,TOTAL 3.6 mg/dL (0.2-1.3); BLOOD UREA NITROGEN 13 mg/dL (9-20); CARBON DIOXIDE 23 mmol/L (22-30); GLUCOSE,RANDOM 175 mg/dL (75-110); TOTAL PROTEIN 7.3 g/dL (6.3-8.3)
[2016-12-20 09:06] LABS: CALCIUM 7.2 mg/dl (8.6-10.4)
[2016-12-20] MEDS: Multiple Vitamins Tab PO SCH (09:48)
[2016-12-20] MEDS: Pantoprazole 40 mg EC Tab PO SCH (09:48)
[2016-12-20] MEDS: Vitamins A & D Oint UD Foilpak TOP SCH ×2 (09:56→17:50)
[2016-12-20 09:58] LABS: EOS # 0.8 K/uL (0.0-0.7); LYMPH # 2.2 K/uL (1.0-4.3); MONO # 1.3 K/uL (0.0-0.8)
--- NOTE | 2016-12-20 10:19 | CP.PCM.PN ---
<Albert Darnell - Last Filed: 12/20/16 10:10> Subjective - Date & Time of Evaluation Date of Evaluation: 12/20/16 Time of Evaluation: 10:10 - Subjective Subjective: Cardiology Progress Note Dr. You Patient seen and examined at the bedside. No acute distress. No acute events overnight. Nursing staff reports no issues. The patient is resting comfortably in bed. The patient denies all cardiopulmonary complaints. 12 point review of systems was preformed and the patient denied all complaints at this time. Objective - Vital Signs/Intake and Output Vital Signs (last 24 hours): Temp Pulse Resp BP Pulse Ox 98.6 F 75 20 111/66 97 12/20/16 07:00 12/20/16 07:00 12/20/16 07:00 12/20/16 07:00 12/20/16 07:00 Intake and Output: 12/20/16 12/20/16 06:59 18:59 Intake Total 280 Balance 280 - Medications Medications: Current Medications Diltiazem HCl (Cardizem) 30 mg PO QID [facility] Last Admin: 12/20/16 09:48 Dose: 30 mg Folic Acid (Folic Acid) 1 mg PO DAILY [facility] Last Admin: 12/20/16 09:48 Dose: 1 mg Octreotide Acetate 1,250 mcg/ (Dextrose) 252.5 mls @ 5.05 mls/hr IV .Q24H [facility] PRN Reason: 25 MCG/HR Last Admin: 12/19/16 20:22 Dose: 5.05 mls/hr Insulin Aspart (Novolog) 0 unit SC ACHS [facility] PRN Reason: Protocol Last Admin: 12/20/16 08:12 Dose: 1 unit Lorazepam (Ativan) 2 mg PO Q4H PRN PRN Reason: withdrawal Morphine Sulfate (Morphine) 1 mg IVP Q3H PRN PRN Reason: Pain, severe (8-10) Multivitamins (Hexavitamin) 1 tab PO DAILY [facility] Last Admin: 12/20/16 09:48 Dose: 1 tab Nadolol (Corgard) 20 mg PO DAILY [facility] Last Admin: 12/20/16 09:48 Dose: 20 mg Ondansetron HCl (Zofran Inj) 4 mg IVP Q6H PRN PRN Reason: Nausea/Vomiting Pantoprazole Sodium (Protonix Ec Tab) 40 mg PO DAILY [facility] Last Admin: 12/20/16 09:48 Dose: 40 mg Thiamine HCl (Vitamin B1 Tab) 100 mg PO DAILY [facility] Last Admin: 12/20/16 09:48 Dose: 100 mg Triamcinolone Acetonide (Kenalog 0.1% Cream) 0 appl TOP BID [facility] Last Admin: 12/20/16 09:48 Dose: 1 appl Vitamin A (Vitamin A & D Oint Ud Foilpak) 1 ea TOP BID [facility] Last Admin: 12/20/16 09:56 Dose: 1 ea - Labs Labs: 12/20/16 08:49 12/20/16 08:49 PT 22.4 SECONDS (9.7-12.2) H 12/19/16 07:50 INR 1.9 12/19/16 07:50 APTT 38 SECONDS (21-34) H 12/17/16 06:00 - Additional Findings Additional findings: - Constitutional Appears: Well, Non-toxic, No Acute Distress - Head Exam Head Exam: ATRAUMATIC, NORMAL INSPECTION, NORMOCEPHALIC - Eye Exam Eye Exam: EOMI, Normal appearance - ENT Exam ENT Exam: Mucous Membranes Moist - Neck Exam Neck Exam: Full ROM, Normal Inspection. absent: Lymphadenopathy - Respiratory Exam Respiratory Exam: Clear to Ausculation Bilateral, NORMAL BREATHING PATTERN. absent: Rhonchi, Wheezes - Cardiovascular Exam Cardiovascular Exam: Irregular Rhythm (irregularly), +S1, +S2. absent: Diastolic murmur, REGULAR RHYTHM, RRR, Murmur - GI/Abdominal Exam GI & Abdominal Exam: Soft, Normal Bowel Sounds. absent: Distended, Guarding, Tenderness - Extremities Exam Extremities Exam: Full ROM, Normal Capillary Refill, Normal Inspection. absent : Joint Swelling, Pedal Edema - Back Exam Back Exam: NORMAL INSPECTION. absent: CVA tenderness (L), CVA tenderness (R) - Neurological Exam Neurological Exam: Alert, Awake, CN II-XII Intact, Oriented x3 - Skin Skin Exam: Dry, Intact, Normal Color, Warm Assessment and Plan (1) Atrial fibrillation with rapid ventricular response Assessment & Plan: Continue rate control with Nadolol 20mg po daily and cardizem 30mg po qid Contraindication for anticoagulation at this time 2/2 to GI bleeding Patient for gastric emptying scan today per GI (Dr. Todd) 12/17/16 EKG- irregularly irregular rhythm, physiologic axis, normal QRS duration , prolonged QTc interval, no ST or T wave abnormalities 12/17/16 Echo- LV EF- 66%, dilated LA, mile MR, moderate TR Case Discussed with Dr. Kenyatta Darnell PGY1 Status: c <Jermaine You - Last Filed: 01/26/17 10:36> Objective - Vital Signs/Intake and Output Vital Signs (last 24 hours): Temp Pulse Resp BP Pulse Ox 98.4 F 65 20 117/68 99 12/21/16 15:24 12/21/16 15:24 12/21/16 15:24 12/21/16 15:24 12/21/16 15:24 - Labs Labs: 12/21/16 07:51 12/21/16 07:51 PT 25.0 SECONDS (9.7-12.2) H 12/21/16 07:51 INR 2.1 12/21/16 07:51 APTT 39 SECONDS (21-34) H 12/21/16 07:51 Attending/Attestation - Attestation I have personally seen and examined this patient.: Yes I have fully participated in the care of the patient.: Yes I have reviewed all pertinent clinical information, including history, physical exam and plan: Yes Notes (Text): 01/26/17 10:36 Pt rate controlled no cp
--- NOTE | 2016-12-20 13:04 | VASCLAB ---
PROCEDURE: Lower Extremity Venous Duplex Exam. HISTORY: Right lower extremity edema PRIORS: None. TECHNIQUE: Bilateral common femoral, femoral, popliteal and posterior tibial, peroneal and great saphenous veins were evaluated. Flow was assessed with color Doppler, compressibility, assessment of phasic flow and augmentation response. Report prepared by ELVIS Fritz FINDINGS: RIGHT: 1. Common Femoral Vein: 1.1. Compressibility - Fully compressible: Thrombus - None : Flow - Phasic: Augmentation -Normal: Reflux - None. 2. Femoral Vein: 2.1. Compressibility - Fully compressible: Thrombus - None : Flow - Phasic: Augmentation -Normal: Reflux - None. 3. Popliteal Vein: 3.1. Compressibility - Fully compressible: Thrombus - None : Flow - Phasic: Augmentation -Normal: Reflux - None. 4. Posterior Tibial Vein: 4.1. Compressibility - Fully compressible: Thrombus - None: Flow - Phasic: Augmentation -Normal: Reflux - None. 5. Peroneal Vein: 5.1. Compressibility - Fully compressible: Thrombus - None: Flow - Phasic: Augmentation -Normal: Reflux - None. 6. Great Saphenous Vein: 6.1. Compressibility - Partial: Thrombus - Yes: Flow - Reduced LEFT: 1. Common Femoral Vein: 1.1. Compressibility - Fully compressible: Thrombus - None: Flow - Phasic: Augmentation -Normal: Reflux - None. 2. Femoral Vein: 2.1. Compressibility - Fully compressible: Thrombus - None: Flow - Phasic: Augmentation -Normal: Reflux - None. 3. Popliteal Vein: 3.1. Compressibility - Fully compressible: Thrombus - None : Flow - Phasic: Augmentation -Normal: Reflux - None. 4. Posterior Tibial Vein: 4.1. Compressibility - Fully compressible: Thrombus - None: Flow - Phasic: Augmentation -Normal: Reflux - None. 5. Peroneal Vein: 5.1. Compressibility - Fully compressible: Thrombus - None: Flow - Phasic: Augmentation -Normal: Reflux - None. 6. Great Saphenous Vein: 6.1. Compressibility - Fully compressible: Thrombus - None: Flow - Phasic: Augmentation - Normal: Reflux - None. OTHER FINDINGS: Right: None significant. Left: None significant. IMPRESSION: 1. No evidence of deep vein thrombosis in bilateral lower extremities. 2. Superficial phlebitis of the RIGHT great saphenous vein, at the thigh level. Findings were reported by the director cardiovascular, to Isa Joe at 11:29 a.m.
[2016-12-20] MEDS ORDERED: Octreotide 1,250 MCG in Dextrose 5% In Water 250 ML IV SCH (17:06)
[2016-12-21] MEDS: (Novolog) Insulin Aspart, Recombinant 100 u/ml 10 ml vial SC SCH ×3 (07:12→17:33)
[2016-12-21 08:04] LABS: HEMATOCRIT 27.6 % (35.0-51.0); MEAN CELL VOLUME 78.5 fL (80.0-94.0); MEAN CORPUSCULAR HGB CONC 31.8 g/dL (33.0-37.0); MEAN PLATELET VOLUME 8.7 fL (7.2-11.7); RED CELL DISTRIBUTION WIDTH 24.9 % (11.5-14.5); WHITE BLOOD COUNT 9.2 K/uL (4.8-10.8)
[2016-12-21 08:09] LABS: INR 2.1
[2016-12-21 08:10] LABS: CHLORIDE 101 mmol/L (98-107); POTASSIUM 4.1 mmol/L (3.6-5.2); SODIUM 134 mmol/L (132-148)
[2016-12-21 08:12] LABS: ALB/GLOB RATIO 0.5 (1.0-2.1); AST/SGOT 57 U/L (17-59); BILIRUBIN,TOTAL 3.1 mg/dL (0.2-1.3); CARBON DIOXIDE 24 mmol/L (22-30); GFR AFRICAN-AMERICAN > 60; TOTAL PROTEIN 7.3 g/dL (6.3-8.3)
[2016-12-21 08:13] LABS: ALKALINE PHOSPHATASE 170 U/L (38-126); ALT/SGPT 21 U/L (21-72); BLOOD UREA NITROGEN 10 mg/dL (9-20); CALCIUM 7.3 mg/dl (8.6-10.4); GLUCOSE,RANDOM 122 mg/dL (75-110); MAGNESIUM 1.5 mg/dL (1.6-2.3)
--- NOTE | 2016-12-21 08:35 | CARD ---
APPROVED REPORT EKG Measurement Heart [id number] <Conclusion> Atrial fibrillation Prolonged QT Abnormal ECG
[2016-12-21] MEDS: Multiple Vitamins Tab PO SCH (09:39)
[2016-12-21] MEDS: Vitamins A & D Oint UD Foilpak TOP SCH ×2 (09:39→17:33)
[2016-12-21] MEDS: Pantoprazole 40 mg EC Tab PO SCH (09:39)
--- NOTE | 2016-12-21 09:47 | CP.PCM.PN ---
<Albert Darnell - Last Filed: 12/21/16 09:45> Subjective - Date & Time of Evaluation Date of Evaluation: 12/21/16 Time of Evaluation: 09:45 - Subjective Subjective: Cardiology Progress Note Dr. You Patient seen and examined at the bedside. No acute distress. No acute events overnight. Nursing staff reports no issues. The patient is resting comfortably in bed. Patient is without complaint this morning. 12 point review of systems was preformed and the patient denied all complaints at this time. Objective - Vital Signs/Intake and Output Vital Signs (last 24 hours): Temp Pulse Resp BP Pulse Ox 98.8 F 67 18 113/68 98 12/21/16 08:21 12/21/16 08:21 12/21/16 08:21 12/21/16 08:21 12/21/16 08:21 Intake and Output: 12/21/16 12/21/16 06:59 18:59 Intake Total 609.2 Output Total 750 Balance -140.8 - Medications Medications: Current Medications Diltiazem HCl (Cardizem) 30 mg PO QID [facility] Last Admin: 12/21/16 09:39 Dose: 30 mg Folic Acid (Folic Acid) 1 mg PO DAILY [facility] Last Admin: 12/21/16 09:39 Dose: 1 mg Insulin Aspart (Novolog) 0 unit SC ACHS [facility] PRN Reason: Protocol Last Admin: 12/21/16 07:12 Dose: Not Given Lorazepam (Ativan) 2 mg PO Q4H PRN PRN Reason: withdrawal Morphine Sulfate (Morphine) 1 mg IVP Q3H PRN PRN Reason: Pain, severe (8-10) Multivitamins (Hexavitamin) 1 tab PO DAILY [facility] Last Admin: 12/21/16 09:39 Dose: 1 tab Nadolol (Corgard) 20 mg PO DAILY [facility] Last Admin: 12/21/16 09:39 Dose: 20 mg Ondansetron HCl (Zofran Inj) 4 mg IVP Q6H PRN PRN Reason: Nausea/Vomiting Pantoprazole Sodium (Protonix Ec Tab) 40 mg PO DAILY [facility] Last Admin: 12/21/16 09:39 Dose: 40 mg Thiamine HCl (Vitamin B1 Tab) 100 mg PO DAILY [facility] Last Admin: 12/21/16 09:39 Dose: 100 mg Triamcinolone Acetonide (Kenalog 0.1% Cream) 0 appl TOP BID [facility] Last Admin: 12/21/16 09:39 Dose: 1 appl Vitamin A (Vitamin A & D Oint Ud Foilpak) 1 ea TOP BID [facility] Last Admin: 12/21/16 09:39 Dose: 1 ea - Labs Labs: 12/21/16 07:51 12/21/16 07:51 PT 25.0 SECONDS (9.7-12.2) H 12/21/16 07:51 INR 2.1 12/21/16 07:51 APTT 39 SECONDS (21-34) H 12/21/16 07:51 - Additional Findings Additional findings: - Constitutional Appears: Well, Non-toxic, No Acute Distress - Head Exam Head Exam: ATRAUMATIC, NORMAL INSPECTION, NORMOCEPHALIC - Eye Exam Eye Exam: EOMI, Normal appearance - ENT Exam ENT Exam: Mucous Membranes Moist - Neck Exam Neck Exam: Full ROM, Normal Inspection. absent: Lymphadenopathy - Respiratory Exam Respiratory Exam: Clear to Ausculation Bilateral, NORMAL BREATHING PATTERN. absent: Rhonchi, Wheezes - Cardiovascular Exam Cardiovascular Exam: Irregular Rhythm (irregularly), +S1, +S2. absent: Diastolic murmur, REGULAR RHYTHM, RRR, Murmur - GI/Abdominal Exam GI & Abdominal Exam: Soft, Normal Bowel Sounds. absent: Distended, Guarding, Tenderness - Extremities Exam Extremities Exam: Full ROM, Normal Capillary Refill, Normal Inspection, Edema ( improving, non-tender to palpation). absent: Joint Swelling, Pedal Edema - Back Exam Back Exam: NORMAL INSPECTION. absent: CVA tenderness (L), CVA tenderness (R) - Neurological Exam Neurological Exam: Alert, Awake, CN II-XII Intact, Oriented x3 - Skin Skin Exam: Dry, Intact, Normal Color, Warm Assessment and Plan (1) Atrial fibrillation with rapid ventricular response Assessment & Plan: Dr. You and the cardiology will sign off case at this time. Please reconsult as necessary. Thank you. Continue rate control Anticoagulation is medically contraindicated at this time Continue rate control with Nadolol 20mg po daily and cardizem 30mg po qid Contraindication for anticoagulation at this time 2/2 to GI bleeding Patient for gastric emptying scan- normal 12/17/16 EKG- irregularly irregular rhythm, physiologic axis, normal QRS duration , prolonged QTc interval, no ST or T wave abnormalities 12/17/16 Echo- LV EF- 66%, dilated LA, mile MR, moderate TR Case Discussed with Dr. Kenyatta Darnell PGY1 Status: c <Jermaine You - Last Filed: 01/26/17 10:37> Objective - Vital Signs/Intake and Output Vital Signs (last 24 hours): Temp Pulse Resp BP Pulse Ox 98.4 F 65 20 117/68 99 12/21/16 15:24 12/21/16 15:24 12/21/16 15:24 12/21/16 15:24 12/21/16 15:24 - Labs Labs: 12/21/16 07:51 12/21/16 07:51 PT 25.0 SECONDS (9.7-12.2) H 12/21/16 07:51 INR 2.1 12/21/16 07:51 APTT 39 SECONDS (21-34) H 12/21/16 07:51 Attending/Attestation - Attestation I have personally seen and examined this patient.: Yes I have fully participated in the care of the patient.: Yes I have reviewed all pertinent clinical information, including history, physical exam and plan: Yes Notes (Text): 01/26/17 10:36 Rate controlled no events
[2016-12-21 09:57] LABS: EOS # 0.5 K/uL (0.0-0.7); LYMPH # 1.5 K/uL (1.0-4.3); MONO # 1.4 K/uL (0.0-0.8)
--- NOTE | 2016-12-21 12:29 | VASCLAB ---
STUDY DESCRIPTION: HISTORY: right lower extremity edema, diminished pedal puls PRIORS: None. TECHNIQUE: Pulse volume recording waveforms and segmental pressures of bilateral lower extremities at multiple levels were obtained. Ankle Brachial Indices (ABIs) were calculated. Report prepared by ELVIS Fritz RIGHT LOWER EXTREMITY: * Brachial artery: Pressure - 118 mmHg. * High thigh: Pressure - mmHg: Ratio - : PVR waveform - Pulsatile * Low thigh: Pressure - mmHg: Ratio - PVR waveform: Pulsatile * Calf: Pressure - mmHg: Ratio - PVR waveform: Pulsatile * Posterior tibial Artery: Pressure - 177 mmHg: Ratio - 1.46 PVR waveform: Pulsatile * Dorsalis pedis Artery: Pressure - 142 mmHg: Ratio - 1.17 PVR waveform: Pulsatile Ankle brachial index (MIRNA): 1.46 LEFT LOWER EXTREMITY: * Brachial artery: Pressure - 121 mmHg. * High thigh: Pressure - >220 mmHg: Ratio - n/a: PVR waveform - Pulsatile * Low thigh: Pressure - 144 mmHg: Ratio - 1.19 PVR waveform: Pulsatile * Calf: Pressure - >220 mmHg: Ratio - n/a PVR waveform: Pulsatile * Posterior tibial Artery: Pressure - 163 mmHg: Ratio - 1.35 PVR waveform: Pulsatile * Dorsalis pedis Artery: Pressure - 150 mmHg: Ratio - 1.24 PVR waveform: Pulsatile Ankle brachial index (MIRNA): 1.35 OTHER FINDINGS: Right: There was no evidence of hemodynamically significant arterial insufficiency in the right lower extremity. Left: There was no evidence of hemodynamically significant arterial insufficiency in the left lower extremity. IMPRESSION: Pulse volume recordings and segmental pressures, suggest normal arterial perfusion to bilateral lower extremities, at rest.
[2016-12-21 15:27] VITALS: BP 117/68; PULSE 65; RESP 20; TEMP 98.4; O2SAT 99
--- NOTE | 2016-12-21 20:04 | CP.PCM.DIS ---
<BariIdania - Last Filed: 12/21/16 20:01> Provider - Provider Date of Admission: 12/16/16 21:30 Attending physician: Bernard Bearden DO Primary care physician: none Consults: RAÚL, Dr. Todd Cardiology, Dr. You Time Spent in preparation of Discharge (in minutes): 31 Diagnosis - Discharge Diagnosis (1) Anemia Status: Acute Comment: please see hospital course (2) Atrial fibrillation with rapid ventricular response Status: Acute Comment: please see hospital course (3) Hematemesis Status: Acute Comment: please see hospital course (4) Liver disease Status: Acute Comment: please see hospital course Hospital Course - Lab Results Lab Results: Most Recent Lab Values WBC 9.2 K/uL (4.8-10.8) 12/21/16 07:51 RBC 3.52 Mil/uL (4.40-5.90) L 12/21/16 07:51 Hgb 8.8 g/dL (12.0-18.0) L 12/21/16 07:51 Hct 27.6 % (35.0-51.0) L 12/21/16 07:51 MCV 78.5 fL (80.0-94.0) L 12/21/16 07:51 MCH 25.0 pg (27.0-31.0) L 12/21/16 07:51 MCHC 31.8 g/dL (33.0-37.0) L 12/21/16 07:51 RDW 24.9 % (11.5-14.5) H 12/21/16 07:51 Plt Count 247 K/uL (130-400) 12/21/16 07:51 MPV 8.7 fL (7.2-11.7) 12/21/16 07:51 Neut % (Auto) 64.0 % (50.0-75.0) 12/21/16 07:51 Lymph % (Auto) 16.0 % (20.0-40.0) L 12/21/16 07:51 Mcintosh % (Auto) 15.0 % (0.0-10.0) H 12/21/16 07:51 Eos % (Auto) 5.0 % (0.0-4.0) H 12/21/16 07:51 Baso % (Auto) 0.0 % (0.0-2.0) 12/21/16 07:51 Neut # 5.9 K/uL (1.8-7.0) 12/21/16 07:51 Lymph # 1.5 K/uL (1.0-4.3) 12/21/16 07:51 Mcintosh # 1.4 K/uL (0.0-0.8) H 12/21/16 07:51 Eos # 0.5 K/uL (0.0-0.7) 12/21/16 07:51 Baso # 0.0 K/uL (0.0-0.2) 12/21/16 07:51 Neutrophils % (Manual) 55 % (50-75) 12/17/16 06:00 Lymphocytes % (Manual) 19 % (20-40) L 12/17/16 06:00 Reactive Lymphs % 1 % (0-0) H 12/16/16 19:50 Monocytes % (Manual) 22 % (0-10) H 12/17/16 06:00 Eosinophils % (Manual) 4 % (0-4) 12/17/16 06:00 Platelet Estimate Normal (NORMAL) 12/17/16 06:00 Large Platelets Present 12/17/16 06:00 Giant Platelets Present 12/16/16 19:50 Polychromasia Slight 12/16/16 19:50 Hypochromasia (manual) Slight 12/17/16 06:00 Poikilocytosis (manual Slight 12/17/16 06:00 Anisocytosis (manual) Moderate 12/17/16 06:00 Microcytosis (manual) Slight 12/16/16 19:50 Macrocytosis (manual) Slight 12/16/16 19:50 Spherocytes Slight 12/16/16 19:50 Target Cells Moderate 12/17/16 06:00 Ovalocytes Slight 12/16/16 19:50 Retic Count 2.9 % (0.5-1.5) H 12/17/16 06:00 PT 25.0 SECONDS (9.7-12.2) H 12/21/16 07:51 INR 2.1 12/21/16 07:51 APTT 39 SECONDS (21-34) H 12/21/16 07:51 Sodium 134 mmol/L (132-148) 12/21/16 07:51 Potassium 4.1 mmol/L (3.6-5.2) 12/21/16 07:51 Chloride 101 mmol/L (98-107) 12/21/16 07:51 Carbon Dioxide 24 mmol/L (22-30) 12/21/16 07:51 Anion Gap 13 (10-20) 12/21/16 07:51 BUN 10 mg/dL (9-20) 12/21/16 07:51 Creatinine 0.8 MG/DL (0.8-1.5) 12/21/16 07:51 Est GFR ( Amer) > 60 12/21/16 07:51 Est GFR (Non-Af Amer) > 60 12/21/16 07:51 POC Glucose (mg/dL) 172 mg/dL (65-110) H 12/21/16 16:20 Random Glucose 122 mg/dL (75-110) H 12/21/16 07:51 Hemoglobin A1c 6.8 % (4.2-6.5) H 12/17/16 06:00 Calcium 7.3 mg/dl (8.6-10.4) L 12/21/16 07:51 Phosphorus 3.8 mg/dL (2.5-4.5) 12/18/16 06:11 Magnesium 1.5 mg/dL (1.6-2.3) L 12/21/16 07:51 Iron 35 ug/dL (49-181) L 12/17/16 06:00 TIBC 301 ug/dL (250-450) 12/17/16 06:00 % Saturation 12 (20-55) L 12/17/16 06:00 Total Bilirubin 3.1 mg/dL (0.2-1.3) H 12/21/16 07:51 Direct Bilirubin 2.7 mg/dL (0.0-0.4) H 12/19/16 07:50 AST 57 U/L (17-59) 12/21/16 07:51 ALT 21 U/L (21-72) 12/21/16 07:51 Alkaline Phosphatase 170 U/L (38-126) H 12/21/16 07:51 Total Creatine Kinase 288 U/L (55-170) H 12/17/16 16:17 CK-MB (Mass) 2.22 ng/mL (0.0-3.38) 12/17/16 16:17 Troponin I, Quant < 0.0120 ng/mL (0.00-0.120) 12/17/16 16:17 Total Protein 7.3 g/dL (6.3-8.3) 12/21/16 07:51 Albumin 2.5 g/dL (3.5-5.0) L 12/21/16 07:51 Globulin 4.8 gm/dL (2.2-3.9) H 12/21/16 07:51 Albumin/Globulin Ratio 0.5 (1.0-2.1) L 12/21/16 07:51 Triglycerides 122 mg/dL (0-149) 12/17/16 06:00 Cholesterol 162 mg/dL (0-199) 12/17/16 06:00 LDL Cholesterol Direct 104 mg/dL (0-129) 12/17/16 06:00 HDL Cholesterol 22 mg/dL (30-70) L 12/17/16 06:00 Lipase 176 U/L (23-300) 12/16/16 19:50 Thyroxine (T4) 2.79 ug/dL (5.5-11.0) L 12/17/16 06:00 TSH 3rd Generation 2.04 mIU/L (0.46-4.68) 12/17/16 06:00 Urine Color Yellow (YELLOW) 12/16/16 22:40 Urine Clarity Clear (Clear) 12/16/16 22:40 Urine pH 6.0 (5.0-8.0) 12/16/16 22:40 Ur Specific [place] 1.016 (1.003-1.030) 12/16/16 22:40 Urine Protein Negative mg/dL (NEGATIVE) 12/16/16 22:40 Urine Glucose (UA) Normal mg/dL (Normal) 12/16/16 22:40 Urine Ketones Negative mg/dL (NEGATIVE) 12/16/16 22:40 Urine Blood 1+ (NEGATIVE) H 12/16/16 22:40 Urine Nitrate Negative (NEGATIVE) 12/16/16 22:40 Urine Bilirubin Negative (NEGATIVE) 12/16/16 22:40 Urine Urobilinogen 4.0 mg/dL (0.2-1.0) 12/16/16 22:40 Ur Leukocyte Esterase Neg Eric/uL (Negative) 12/16/16 22:40 Urine WBC (Auto) 1 /hpf (0-5) 12/16/16 22:40 Urine RBC (Auto) 7 /hpf (0-3) H 12/16/16 22:40 Ur Squamous Epith Cells < 1 /hpf (0-5) 12/16/16 22:40 Stool Occult Blood Negative (NEGATIVE) 12/16/16 21:34 Urine Opiates Screen Negative (NEGATIVE) 12/16/16 22:09 Urine Methadone Screen Negative (NEGATIVE) 12/16/16 22:09 Ur Barbiturates Screen Negative (NEGATIVE) 12/16/16 22:09 Ur Phencyclidine Scrn Negative (NEGATIVE) 12/16/16 22:09 Ur Amphetamines Screen Negative (NEGATIVE) 12/16/16 22:09 U Benzodiazepines Scrn Negative (NEGATIVE) 12/16/16 22:09 U Oth Cocaine Metabols Negative (NEGATIVE) 12/16/16 22:09 U Cannabinoids Screen Negative (NEGATIVE) 12/16/16 22:09 Alcohol, Quantitative 47 mg/dl (0-10) H 12/16/16 19:50 Hepatitis A IgM Ab Negative (NEGATIVE) 12/17/16 06:00 Hep Bs Antigen Negative (NEGATIVE) 12/17/16 06:00 Hep B Core IgM Ab Negative (NEGATIVE) 12/17/16 06:00 Hepatitis C Antibody Negative (NEGATIVE) 12/17/16 06:00 HIV 1&2 Antibody Screen Negative (NEGATIVE) 12/17/16 06:00 Blood Type O POSITIVE 12/18/16 16:32 Antibody Screen Negative 12/18/16 16:32 - Hospital Course Hospital Course: CC: "Right shoulder and leg pain" HPI: Patient is a 51 year old male with medical history of liver disease and alcohol abuse who presents to the emergency department for right shoulder pain and right lower extremity swelling and pain. Patient is a poor historian and difficult to understand due to hoarse voice/laryngitis. He states he lost his voice 4 days ago. Patient denies recent intake of alcohol; however, blood alcohol level performed in ED came back elevated (47). When questioned about alcohol use, patient states he quit drinking in three years ago. He reports he used to drink 2 pints of vodka for many years. Patient states he developed right shoulder pain 4 days ago. He denies any trauma to the area. Patient denies chest pain, palpitations, shortness of breath, and abdominal pain/ distention. He admits to multiple episodes of dark red emesis 4 days ago. Patient cannot not quantify amount or further describe vomitus. He states, "I was throwing up all night." He denies diarrhea, hematochezia, and melanic stool. Patient admits to feeling fatigue. He denies dizziness and lightheadedness. Patient also complains of right lower extremity swelling and pain, which has been present for a year. He reports he had surgery for an infection to the affected extremity one year ago. Patient notes he has difficulty with ambulation. He does not use any supportive devices for ambulation. Patient denies history of alcohol withdrawal and seizure activity, hallucinations, and tremors. PMD: none PMH: Liver disease, alcohol abuse Medications: none Allergies: NKDA, seasonal allergies Family History: denies Surgical History: Right lower extremity surgery Social: Denies tobacco and illicit drug use. Reports he has not had alcohol in 3 years. Admits to drinking 2 pints of vodka daily in the past. Admits to being homeless. During hospital course: Right Lower Extremity Edema Likely Elephantiasis [place] edema significantly improved For Venous Duplex - Pulse volume recordings and segmental pressures suggest normal arterial perfusion to bilateral lower extremities at rest. Start warm compresses Arterial Duplex Scan - no evidence of DVT. Superficial phlebitis of right great saphenous vein at thigh level Maintain Right Lower Extremity elevated Wound Care Morphine 1 mg q3h PRN for severe pain PT/OT Microcytic Anemia Hemoglobin down to 8.5 from 9.6, Hematocrit down to 26.9 from 29.2, MCV 77.7 Retic Count 2.9, Iron 35, TIBC 301, % Saturation 12 Rule out GI bleed EGD: Small esophageal varices; retained food in stomach; multiple small polyps in antrum. f/u Gastric Emptying Study for gastroparesis Discontinued Octreotide drip Stool Occult Blood negative GI, Dr. Degroot, consulted. help appreciated. Atrial Fibrillation with RVR 12/21/16: Considered discharging patient with baby aspirin; however, due to his history of alcohol abuse and findings of esophageal varices, did not think it was safe for patient as he does not follow with a primary care doctor. 12/20/16: Continue current rate control management 12/17/16 EKG- irregularly irregular rhythm, physiologic axis, normal QRS duration , prolonged QTc interval, no ST or T wave abnormalities Patient denies prior history of a-fib Continue Nadolol 20 mg po daily and Cardizem 30 mg po QID for rate control f/u echocardiogram report Anticoagulation held due to GI bleed SHELREY Panel - negative Cardiology, Dr. You, consulted. Alcohol Abuse Disorder 12/21: Counseled patient to stop alcohol abuse. Alcohol, Quantitative 47 on admission Denying current alcohol abuse AST 73/ALT 21 Alk Phos 140 Hyperbilirubinemia - total bilirubin 4.1, direct bilirubin 2.7 Abdominal US: Examination limited by bowel gas. Gallbladder wall appears thickened measuring approximately 5 mm with trace pericholecystic edema. No gallstones identified. Negative sonographic West's sign as assessed by the gericare aide teacher. 1.9 x 2.3 x 2.1 cm left renal cyst. Trace perihepatic ascites. Nodular hepatic contour. Correlate clinically for possibility of cirrhosis. f/u ammonia level Ativan 2 mg po q4h prn for withdrawal symptoms Zofran 4 mg IVP q6h prn for nausea/vomiting Continue folic acid, multivitamins, and thiamine daily Counseled on alcohol cessation seizure and aspiration precautions Transaminitis Likely secondary to alcohol abuse 12/21: Resolved AST 57, ALT 21 Hepatitis Panel -Negative Abdominal Ultrasound - see above Monitor Coagulopathy Likely secondary to alcohol abuse/cirrhosis PT 25.0, INR 2.1, PTT 39 Vitamin K 10 mg SC given yesterday Chemical VTE contraindicated Monitor Papular Dermatosis Gabe's disease (Transient Acantholytic Dermatosis) vs. HIV dermatosis vs. Folliculitis Pruritus improved HIV Antibody - negative Triamcinolone 0.1% topical cream BID for 2 weeks to chest and back for pruritus Pseudo-Hypocalcemia calcium 7.3 albumin 2.6 corrected calcium 11.34 Hyponatremia 12/21: resolved Sodium 132 Will Monitor Prophylaxis Protonix 20 mg po daily Chemical VTE contraindicated due to coagulopathy Heart Healthy Diet Please note this is a summary of hospital coure Discharge Instructions: Patient medically stable for discharge. Patient instructed to take the following medications: Metformin 500 mg tab by mouth twice daily Nadolol 20 mg tab by mouth daily Cardizem 30 mg tab by mouth four times daily Protonix 40 mg by mouth daily Patient educated to stop drinking alcohol. Patient instructed to establish care and follow-up at [facility] in the basement within one week of discharge. Patient instructed to follow-up with cardiology, Dr. You, within one week of discharge. Patient instructed to follow-up with gastroenterology, Dr. Aragon. Patient instructed he can be referred through the clinic. Patient instructed to return to emergency department if symptoms recur. Patient given detailed instructions at bedside, understands and agrees. - Date & Time of H&P Date of H&P: 12/16/16 Time of H&P: 22:05 Discharge Exam - Head Exam Head Exam: ATRAUMATIC, NORMAL INSPECTION, NORMOCEPHALIC - Eye Exam Eye Exam: EOMI, Normal appearance, Scleral icterus - Neck Exam Neck exam: Normal Inspection - Respiratory Exam Respiratory Exam: Clear to PA & Lateral, NORMAL BREATHING PATTERN, UNREMARKABLE - Cardiovascular Exam Cardiovascular Exam: +S1, +S2. absent: Tachycardia - GI/Abdominal Exam GI & Abdominal Exam: Normal Bowel Sounds, Unremarkable. absent: Distended, Firm - Extremities Exam Extremities exam: pedal pulses present Additional comments: right lower extremity edema significantly improved. Xerotic, verrucous plaque inferior to knee. Nontender to palpation. Deformity to bilateral feet. Pedal pulse intact. - Neurological Exam Neurological exam: Alert, Oriented x3 - Psychiatric Exam Psychiatric exam: Normal Affect, Normal Mood - Skin Additional comments: jaundiced Discharge Plan - Discharge Medications Prescriptions: diltiaZEM [Cardizem] 30 mg PO QID #120 tab Nadolol [Corgard] 20 mg PO DAILY #30 tab Metformin HCl [Glucophage] 500 mg PO BID #60 tablet Pantoprazole [Protonix EC Tab] 40 mg PO DAILY #30 ect - Follow Up Plan Condition: SERIOUS Disposition: HOME/ ROUTINE Instructions: Nadolol (By mouth), Diltiazem (By mouth), Metformin (By mouth), Pantoprazole (By mouth), Atrial Fibrillation (DC), Alcohol Intoxication (DC), Abuse of Alcohol (DC), Anemia (DC) Additional Instructions: Patient medically stable for discharge. Patient instructed to take the following medications: Metformin 500 mg tab by mouth twice daily Nadolol 20 mg tab by mouth daily Cardizem 30 mg tab by mouth four times daily Protonix 40 mg by mouth daily Patient educated to stop drinking alcohol. Patient instructed to establish care and follow-up at [facility] in the basement within one week of discharge. Patient instructed to follow-up with cardiology, Dr. You, within one week of discharge. Patient instructed to follow-up with gastroenterology, Dr. Aragon. Patient instructed he can be referred through the clinic. Patient instructed to return to emergency department if symptoms recur. Patient given detailed instructions at bedside, understands and agrees. Referrals: Jermaine You MD [Staff Provider] - Aleena Esteban MD [Staff Provider] - <Bernard Bearden - Last Filed: 12/22/16 09:04> Provider - Provider Date of Admission: 12/16/16 21:30 Attending physician: Bernard Bearden DO Hospital Course - Lab Results Lab Results: Most Recent Lab Values WBC 9.2 K/uL (4.8-10.8) 12/21/16 07:51 RBC 3.52 Mil/uL (4.40-5.90) L 12/21/16 07:51 Hgb 8.8 g/dL (12.0-18.0) L 12/21/16 07:51 Hct 27.6 % (35.0-51.0) L 12/21/16 07:51 MCV 78.5 fL (80.0-94.0) L 12/21/16 07:51 MCH 25.0 pg (27.0-31.0) L 12/21/16 07:51 MCHC 31.8 g/dL (33.0-37.0) L 12/21/16 07:51 RDW 24.9 % (11.5-14.5) H 12/21/16 07:51 Plt Count 247 K/uL (130-400) 12/21/16 07:51 MPV 8.7 fL (7.2-11.7) 12/21/16 07:51 Neut % (Auto) 64.0 % (50.0-75.0) 12/21/16 07:51 Lymph % (Auto) 16.0 % (20.0-40.0) L 12/21/16 07:51 Mcintosh % (Auto) 15.0 % (0.0-10.0) H 12/21/16 07:51 Eos % (Auto) 5.0 % (0.0-4.0) H 12/21/16 07:51 Baso % (Auto) 0.0 % (0.0-2.0) 12/21/16 07:51 Neut # 5.9 K/uL (1.8-7.0) 12/21/16 07:51 Lymph # 1.5 K/uL (1.0-4.3) 12/21/16 07:51 Mcintosh # 1.4 K/uL (0.0-0.8) H 12/21/16 07:51 Eos # 0.5 K/uL (0.0-0.7) 12/21/16 07:51 Baso # 0.0 K/uL (0.0-0.2) 12/21/16 07:51 Neutrophils % (Manual) 55 % (50-75) 12/17/16 06:00 Lymphocytes % (Manual) 19 % (20-40) L 12/17/16 06:00 Reactive Lymphs % 1 % (0-0) H 12/16/16 19:50 Monocytes % (Manual) 22 % (0-10) H 12/17/16 06:00 Eosinophils % (Manual) 4 % (0-4) 12/17/16 06:00 Platelet Estimate Normal (NORMAL) 12/17/16 06:00 Large Platelets Present 12/17/16 06:00 Giant Platelets Present 12/16/16 19:50 Polychromasia Slight 12/16/16 19:50 Hypochromasia (manual) Slight 12/17/16 06:00 Poikilocytosis (manual Slight 12/17/16 06:00 Anisocytosis (manual) Moderate 12/17/16 06:00 Microcytosis (manual) Slight 12/16/16 19:50 Macrocytosis (manual) Slight 12/16/16 19:50 Spherocytes Slight 12/16/16 19:50 Target Cells Moderate 12/17/16 06:00 Ovalocytes Slight 12/16/16 19:50 Retic Count 2.9 % (0.5-1.5) H 12/17/16 06:00 PT 25.0 SECONDS (9.7-12.2) H 12/21/16 07:51 INR 2.1 12/21/16 07:51 APTT 39 SECONDS (21-34) H 12/21/16 07:51 Sodium 134 mmol/L (132-148) 12/21/16 07:51 Potassium 4.1 mmol/L (3.6-5.2) 12/21/16 07:51 Chloride 101 mmol/L (98-107) 12/21/16 07:51 Carbon Dioxide 24 mmol/L (22-30) 12/21/16 07:51 Anion Gap 13 (10-20) 12/21/16 07:51 BUN 10 mg/dL (9-20) 12/21/16 07:51 Creatinine 0.8 MG/DL (0.8-1.5) 12/21/16 07:51 Est GFR ( Amer) > 60 12/21/16 07:51 Est GFR (Non-Af Amer) > 60 12/21/16 07:51 POC Glucose (mg/dL) 172 mg/dL (65-110) H 12/21/16 16:20 Random Glucose 122 mg/dL (75-110) H 12/21/16 07:51 Hemoglobin A1c 6.8 % (4.2-6.5) H 12/17/16 06:00 Calcium 7.3 mg/dl (8.6-10.4) L 12/21/16 07:51 Phosphorus 3.8 mg/dL (2.5-4.5) 12/18/16 06:11 Magnesium 1.5 mg/dL (1.6-2.3) L 12/21/16 07:51 Iron 35 ug/dL (49-181) L 12/17/16 06:00 TIBC 301 ug/dL (250-450) 12/17/16 06:00 % Saturation 12 (20-55) L 12/17/16 06:00 Total Bilirubin 3.1 mg/dL (0.2-1.3) H 12/21/16 07:51 Direct Bilirubin 2.7 mg/dL (0.0-0.4) H 12/19/16 07:50 AST 57 U/L (17-59) 12/21/16 07:51 ALT 21 U/L (21-72) 12/21/16 07:51 Alkaline Phosphatase 170 U/L (38-126) H 12/21/16 07:51 Total Creatine Kinase 288 U/L (55-170) H 12/17/16 16:17 CK-MB (Mass) 2.22 ng/mL (0.0-3.38) 12/17/16 16:17 Troponin I, Quant < 0.0120 ng/mL (0.00-0.120) 12/17/16 16:17 Total Protein 7.3 g/dL (6.3-8.3) 12/21/16 07:51 Albumin 2.5 g/dL (3.5-5.0) L 12/21/16 07:51 Globulin 4.8 gm/dL (2.2-3.9) H 12/21/16 07:51 Albumin/Globulin Ratio 0.5 (1.0-2.1) L 12/21/16 07:51 Triglycerides 122 mg/dL (0-149) 12/17/16 06:00 Cholesterol 162 mg/dL (0-199) 12/17/16 06:00 LDL Cholesterol Direct 104 mg/dL (0-129) 12/17/16 06:00 HDL Cholesterol 22 mg/dL (30-70) L 12/17/16 06:00 Lipase 176 U/L (23-300) 12/16/16 19:50 Thyroxine (T4) 2.79 ug/dL (5.5-11.0) L 12/17/16 06:00 TSH 3rd Generation 2.04 mIU/L (0.46-4.68) 12/17/16 06:00 Urine Color Yellow (YELLOW) 12/16/16 22:40 Urine Clarity Clear (Clear) 12/16/16 22:40 Urine pH 6.0 (5.0-8.0) 12/16/16 22:40 Ur Specific [place] 1.016 (1.003-1.030) 12/16/16 22:40 Urine Protein Negative mg/dL (NEGATIVE) 12/16/16 22:40 Urine Glucose (UA) Normal mg/dL (Normal) 12/16/16 22:40 Urine Ketones Negative mg/dL (NEGATIVE) 12/16/16 22:40 Urine Blood 1+ (NEGATIVE) H 12/16/16 22:40 Urine Nitrate Negative (NEGATIVE) 12/16/16 22:40 Urine Bilirubin Negative (NEGATIVE) 12/16/16 22:40 Urine Urobilinogen 4.0 mg/dL (0.2-1.0) 12/16/16 22:40 Ur Leukocyte Esterase Neg Eric/uL (Negative) 12/16/16 22:40 Urine WBC (Auto) 1 /hpf (0-5) 12/16/16 22:40 Urine RBC (Auto) 7 /hpf (0-3) H 12/16/16 22:40 Ur Squamous Epith Cells < 1 /hpf (0-5) 12/16/16 22:40 Stool Occult Blood Negative (NEGATIVE) 12/16/16 21:34 Urine Opiates Screen Negative (NEGATIVE) 12/16/16 22:09 Urine Methadone Screen Negative (NEGATIVE) 12/16/16 22:09 Ur Barbiturates Screen Negative (NEGATIVE) 12/16/16 22:09 Ur Phencyclidine Scrn Negative (NEGATIVE) 12/16/16 22:09 Ur Amphetamines Screen Negative (NEGATIVE) 12/16/16 22:09 U Benzodiazepines Scrn Negative (NEGATIVE) 12/16/16 22:09 U Oth Cocaine Metabols Negative (NEGATIVE) 12/16/16 22:09 U Cannabinoids Screen Negative (NEGATIVE) 12/16/16 22:09 Alcohol, Quantitative 47 mg/dl (0-10) H 12/16/16 19:50 Hepatitis A IgM Ab Negative (NEGATIVE) 12/17/16 06:00 Hep Bs Antigen Negative (NEGATIVE) 12/17/16 06:00 Hep B Core IgM Ab Negative (NEGATIVE) 12/17/16 06:00 Hepatitis C Antibody Negative (NEGATIVE) 12/17/16 06:00 HIV 1&2 Antibody Screen Negative (NEGATIVE) 12/17/16 06:00 Blood Type O POSITIVE 12/18/16 16:32 Antibody Screen Negative 12/18/16 16:32 Attending/Attestation - Attestation I have personally seen and examined this patient.: Yes I have fully participated in the care of the patient.: Yes I have reviewed all pertinent clinical information, including history, physical exam and plan: Yes Notes (Text): Medical attending: Patient was seen and examined by me, agrees the above note by medical nurse. The patient's hemoglobin stable, it was unchanged from previous day He was not having any withdrawal symptoms, he was not tremulous, he did not have any stomach pain or chest pain, he denied having palpitations. On exam we also had him stand up and walk with us into the hallway and he was able to do so quite well. We explained to him that his alcohol use was causing damage to his body and that if he continued to do so he would induce further liver damage As documented above the resident note there is a history of atrial fibrillation , he is currently rate controlled with Cardizem and low dose beta [place] however because of his drinking history as well as liver cirrhosis, and anemia, and also found on the EGD esophageal varices we do not feel comfortable giving this patient any type of anticoagulation such as Xarelto were Elliquis or Coumadin. We also did consider recommending aspirin however not very confident that the patient's to stop drinking and I do think that the patient may go back to drinking at some point in the future and may further cause damage to his stomach and liver and hence or anemia and bleeding I explained to the patient that it he should consider following up to [facility] if at that time he still able to be sober and avoid alcohol he probably would benefit from the taking a baby aspirin every day Thank you very much, Bernard Bearden
== END 2016-12-21 19:02 | disposition home or self-care (01) | DRG 202 ==
LOC: C.ER 17:51 → C.9E 21:30 → C.6T 22:52
PROVIDERS: ADMIT Hospitalist; ATTEND Hospitalist
PROC: 0DJ08ZZ Inspection of Upper Intestinal Tract, Via Natural or Artificial Opening Endoscopic (ICD-10-PCS; principal; 2016-12-18 09:30)
DX: K70.30 Alcoholic cirrhosis of liver without ascites (principal); K70.10 Alcoholic hepatitis without ascites; D68.9 Coagulation defect, unspecified; I85.10 Secondary esophageal varices without bleeding; E83.51 Hypocalcemia; I48.91 Unspecified atrial fibrillation; E87.1 Hypo-osmolality and hyponatremia; I80.01 Phlebitis and thrombophlebitis of superficial vessels of right lower extremity; D50.9 Iron deficiency anemia, unspecified; F10.20 Alcohol dependence, uncomplicated; I89.0 Lymphedema, not elsewhere classified; R00.0 Tachycardia, unspecified; L98.9 Disorder of the skin and subcutaneous tissue, unspecified; Y90.2 Blood alcohol level of 40-59 mg/100 ml; K31.7 Polyp of stomach and duodenum